=== PATIENT | female | born 1985 | race Caucasian/White ===

== ENCOUNTER 2021-10-22 16:57 | Emergency (ER) | payer BC, SELFPAY ==
[2021-10-22 17:02] VITALS: BP 119/82; PULSE 83; RESP 18; TEMP 36.8; O2SAT 95; BMI 22.8
[2021-10-22 17:30] VITALS: BP 111/80; PULSE 82; RESP 16; O2SAT 97
--- NOTE | 2021-10-22 17:51 | CRLHL7_ITS ---
For Patients: As a result of the Cures Act, medical imaging exams and procedure reports are released immediately into your electronic medical record. You may view this report before your referring provider. If you have questions, please contact your health care provider. INDICATION: fall; injury INDICATION: Fall, injury. TECHNIQUE: Left wrist, three views. COMPARISON: None FINDINGS: Bones: Alignment is normal. No fractures or bone lesions. Joint spaces: Unremarkable. Soft tissues: Unremarkable. IMPRESSION: 1. There is no acute fracture. 2. Mild negative ulnar variance. 3. No lunate/perilunate dislocation on the lateral projection. Dictated by Justin Romano MD @ 10/22/2021 6:42:46 PM Dictated by: Justin Romano MD @ 10/22/2021 18:42:56 (Electronically Signed)
--- NOTE | 2021-10-22 17:51 | CRLHL7_ITS ---
For Patients: As a result of the Cures Act, medical imaging exams and procedure reports are released immediately into your electronic medical record. You may view this report before your referring provider. If you have questions, please contact your health care provider. INDICATION: fall; injury INDICATION: Fall, injury. TECHNIQUE: Left hand, three views. COMPARISON: Left wrist, three views, 10/22/2021. FINDINGS: Bones: Alignment is normal. No fractures or bone lesions. Joint spaces: Unremarkable. Soft tissues: Unremarkable. IMPRESSION: No acute fracture or malalignment. Dictated by Justin Romano MD @ 10/22/2021 6:45:07 PM Dictated by: Justin Romano MD @ 10/22/2021 18:45:28 (Electronically Signed)
--- NOTE | 2021-10-22 17:54 | ED.GENADULT ---
HPI - General Adult General Chief complaint: Fall/Minor Trauma Stated complaint: Fall from ladder Time Seen by Provider: 10/22/21 17:10 History of Present Illness HPI narrative: This 36-year-old female comes in with an injury from a fall that occurred prior to arrival. She was about 4 ft up on a ladder when she fell onto her left side. She did not hit her head or have loss of consciousness. She was able to get up and ambulate after the fall. She complains of pain in her left hand and wrist. She has a small laceration on the palmar aspect of her left middle finger. Related Data Home Medications Medication Instructions Recorded Confirmed buspirone 10/22/21 clonazepam 10/22/21 escitalopram oxalate 10/22/21 gabapentin 10/22/21 levothyroxine 10/22/21 [id number] PO 10/22/21 omeprazole 10/22/21 vitamin B complex PO 10/22/21 Allergies Allergy/AdvReac Type Severity Reaction Status Date / Time amoxicillin Allergy Mild Nausea Verified 10/22/21 17:12 topical iodine Allergy Mild Rash Uncoded 10/22/21 17:12 Review of Systems Status of ROS: Reports: 10 or more systems reviewed and unremarkable except as noted in History and below Narrative: Constitutional: No fevers, no weight gain or loss. Eyes: No discharge. No vision changes. HENT: No congestion, no sore throat, no ear pain. Cardiovascular: No chest pain, no palpitations. Respiratory: No shortness of breath, no wheezes, no cough. Gastrointestinal: No abdominal pain, no vomiting, no diarrhea. Genitourinary: No dysuria, no hematuria. Musculoskeletal: Left hand and wrist pain as described above. Skin: No rashes, no pruritis. Neurological: No dizziness, weakness, sensory change, speech change. Endo/Heme/Allergies: No bruising or bleeding. No polydipsia. Pysch: no suicidality, no anxiety, no insomnia. All other systems reviewed and are negative. PFSH PFS Social History Smoking Status: Never smoker How often do you have a drink containing alcohol: never AUDIT-C Alcohol total score: 0 Non-prescribed substance use: denies use Exam Narrative: Exam Narrative: Constitutional: Well-developed, well-nourished, no acute distress. HEENT: Normocephalic, atraumatic. Neck: Normal range of motion. Nontender. Supple. Heart: Intact distal pulses. Lungs: No chest discomfort. No wheezes, rhonchi, or rales. Abdomen: Nontender. Back: Normal range of motion. Extremities: Diffuse tenderness with some mild swelling and erythema in the left wrist and hand. There is a small superficial laceration, not full thickness wound of the skin, on the palmar aspect of the left middle finger. Skin: Intact. No rash. Warm. No erythema or pallor. Neurologic: No altered sensation. No weakness. Alert and oriented. Psychiatric: No suicidality. No anxiety or depression. No insomnia. Nursing notes and vitals signs are reviewed. Const: Vital Signs, click to edit/add: Vital Signs - 24 hr 10/22/21 17:02 Temperature 98.3 F Pulse Rate [Pulse Oximeter] 83 Respiratory Rate 18 Blood Pressure [ri ght arm] 119/82 Pulse Oximetry 95 Course Vital Signs Vital signs: Initial Vital Signs Temperature 98.3 F 10/22/21 17:02 Temperature Source Temporal Artery Scan 10/22/21 17:02 Pulse Rate 83 10/22/21 17:02 Respiratory Rate 18 10/22/21 17:02 Blood Pressure 119/82 10/22/21 17:02 Blood Pressure Mean 94 10/22/21 17:02 Blood Pressure Position Supine 10/22/21 17:02 Pulse Oximetry 95 10/22/21 17:02 Oxygen Delivery Method 10/22/21 17:02 Vital Signs Temperature 98.3 F 10/22/21 17:02 Pulse Rate 83 10/22/21 17:02 Respiratory Rate 18 10/22/21 17:02 Blood Pressure 119/82 10/22/21 17:02 Pulse Oximetry 95 10/22/21 17:02 Temperature 98.3 F 10/22/21 17:02 Pulse Rate 83 10/22/21 17:02 Respiratory Rate 18 10/22/21 17:02 Blood Pressure 119/82 10/22/21 17:02 Pulse Oximetry 95 10/22/21 17:02 Medical Decision Making MDM Narrative Medical decision making narrative: This patient comes in with an injury to her left hand and wrist from a fall that occurred prior to arrival. X-ray imaging of the hand in the wrist show no sign of fracture or dislocation. The patient does have a superficial wound on the proximal palmar portion of her left middle finger. This was cleansed and then repaired with Dermabond. This is not a full-thickness wound. The length of the wound measures approximately 2 cm. Instructions were given regarding wound care. The patient also received a wrist splint which can be worn as needed. A prescription for some tablets of [place] are also provided. Imaging Data wrist x-ray: Radiologist's impression: 1. There is no acute fracture. 2. Mild negative ulnar variance. 3. No lunate/perilunate dislocation on the lateral projection. hand x-ray: Radiologist's impression: No acute fracture or malalignment. Discharge Plan Discharge Clinical Impression: Laceration, Contusion Patient Disposition: Home, Self-Care Condition: Stable Additional Instructions: Fall from a ladder with contusion to the left wrist and hand. Take medication as needed and indicated. Wear splint as needed also. Follow up with MD or return if worsening. Prescriptions: No Action gabapentin 0RF escitalopram oxalate [Lexapro] 0RF levothyroxine [Tirosint] 0RF [id number]-plofupxm-ylioaak [Creon] PO 0RF clonazepam 0RF omeprazole 0RF buspirone 0RF vitamin B complex [B Complex-Vitamin B12] PO 0RF Follow Up/Referrals: Coreen Tran, EMERGENCY SPILL RESPONSE TECHNICIAN, FLIGHT OPERATION COORDINATOR [Primary Care Provider] - Stand Alone Forms: [employer] Info Instructions
[2021-10-22 18:00] VITALS: BP 111/73; PULSE 78; RESP 18; O2SAT 98
[2021-10-22 18:30] VITALS: BP 112/82
== END 2021-10-22 19:37 | disposition home or self-care (01) ==
PROVIDERS: Emergency Provider Emergency Medicine Emergency Medical Services; PCP Nurse Practitioner Family
DX: S61.213A Laceration without foreign body of left middle finger without damage to nail, initial encounter (principal); W11.XXXA Fall on and from ladder, initial encounter; S60.212A Contusion of left wrist, initial encounter
CPT/HCPCS: 12001; 73110; 73130; 99283; 99284

== ENCOUNTER 2022-02-09 15:25 | Emergency (ER) | payer BC, SELFPAY ==
[2022-02-09 15:48] VITALS: BP 130/86; PULSE 80; RESP 18; TEMP 36.6; O2SAT 96; BMI 23.5
--- NOTE | 2022-02-09 16:00 | ED.GENADULT ---
HPI - General Adult General Time Seen by Provider: 16:01 Date Seen: 02/09/22 Chief complaint: Animal Bite Stated complaint: Dog Bite Yesterday Time Seen by Provider: 02/09/22 16:00 Source: patient History of Present Illness HPI narrative: Vangie is a 37 year old female with past medical history of anxiety and depression, hypothyroidism right handed presents to the ED with an animal bite. Patient states she was bitten by the neighbor's dog around noon yesterday afternoon, he often to take the dog out for a walk, it was a small black might up-to-date on its shots, prior to them leaving the dog grabbed her right hand and latched on, she sustained multiple small bite thorpe to the top and bottom of her right hand, she had some increased redness this morning, there was minimal swelling, she has normal range of motion. Patient had her tetanus about 8 years ago. She denies any fevers or chills. No joint swelling, myalgias arthralgias. She had been doing well prior to the incident. Related Data Home Medications Medication Instructions Recorded Confirmed buspirone 10/22/21 clonazepam 10/22/21 escitalopram oxalate 10/22/21 gabapentin 10/22/21 levothyroxine 10/22/21 [id number] PO 10/22/21 omeprazole 10/22/21 vitamin B complex PO 10/22/21 Previous Rx's Medication Instructions Recorded doxycycline monohydrate 100 mg 100 mg PO BID 7 days #14 caps 02/09/22 capsule metronidazole 500 mg tablet 500 mg PO TID 7 days #21 tabs 02/09/22 Allergies Allergy/AdvReac Type Severity Reaction Status Date / Time amoxicillin Allergy Mild Nausea Verified 10/22/21 17:12 topical iodine Allergy Mild Rash Uncoded 10/22/21 17:12 Review of Systems Status of ROS: Reports: 10 or more systems reviewed and unremarkable except as noted in History and below PFSH PFS Social History Smoking Status: Never smoker How often do you have a drink containing alcohol: never AUDIT-C Alcohol total score: 0 Non-prescribed substance use: denies use Exam Const: Vital Signs, click to edit/add: Vital Signs - 24 hr 02/09/22 15:48 Temperature 97.9 F Pulse Rate [Right Pulse Oximeter] 80 Respiratory Rate 18 Blood Pressure [Ri ght Upper Arm] 130/86 Pulse Oximetry 96 Oxygen Delivery Me thod Room Air Common normals: no apparent distress and oriented x3 General appearance: cooperative Orientation/consciousness: Yes awake, Yes oriented to person, Yes oriented to place and Yes oriented to time HENMT: Common normals: normocephalic Head and scalp: normocephalic Eye: Common normals: PERRL, EOMs intact bilaterally and conjunctivae normal Conjunctiva: conjunctiva(e) normal Pupil: PERRL Neck & C-Spine: Common normals: full ROM Lymph: Lymphatic: no lymphadenopathy noted Resp: Common normals: normal respiratory effort Cardio: Common normals: regular rate, S1 normal heart sound and S2 normal heart sound Rate: regular rate Heart sounds: S1 normal and S2 normal GI: Common normals: Normal to inspection, nondistended, normoactive bowel sounds present Back & Pelvis: Common normals: thoracic and lumbar spine normal to inspection Extremity: Other: Right hand: patient has multiple small bite injuries to dorusm and palm of her index and middle finger, patient has full range of motion, on extension and flexion of her MCP, PIP and the IP, there is minimal swelling and redness, wounds look clean. Signs of any advancing infection. Neuro: Common normals: oriented x3 Sensorium/orientation: awake, oriented to person, oriented to place and oriented to time Course Course Hospital Course: 4:00 PM: AIDET performed. Workup will include no imaging or labs based on history physical exam, patient is up-to-date on tetanus status, plan would be to treat coverage for pasteurella, patient is allergic to amoxicillin, will cover with doxycycline 100 mg b.i.d. in addition to anaerobic coverage with Flagyl 500 mg t.i.d. over the next 7 days, she continue with soap and water keep the area clean, follow-up with primary care provider next 7-10 days. Vital Signs Vital signs: Initial Vital Signs Temperature 97.9 F 02/09/22 15:48 Temperature Source Temporal Artery Scan 02/09/22 15:48 Pulse Rate 80 02/09/22 15:48 Respiratory Rate 18 02/09/22 15:48 Blood Pressure 130/86 02/09/22 15:48 Blood Pressure Mean 100 02/09/22 15:48 Blood Pressure Position Sitting 02/09/22 15:48 Pulse Oximetry 96 02/09/22 15:48 Oxygen Delivery Method 02/09/22 15:48 Vital Signs Temperature 97.9 F 02/09/22 15:48 Pulse Rate 80 02/09/22 15:48 Respiratory Rate 18 02/09/22 15:48 Blood Pressure 130/86 02/09/22 15:48 Pulse Oximetry 96 02/09/22 15:48 Oxygen Delivery Method 02/09/22 15:48 Temperature 97.9 F 02/09/22 15:48 Pulse Rate 80 02/09/22 15:48 Respiratory Rate 18 02/09/22 15:48 Blood Pressure 130/86 02/09/22 15:48 Pulse Oximetry 96 02/09/22 15:48 Oxygen Delivery Method 02/09/22 15:48 Discharge Plan Discharge Clinical Impression: Dog bite Condition: Improved Instructions: Animal Bite (ED) Additional Instructions: Doxycycline 100 mg twice daily and flagyl 500 mg three times daily for 7 days. To continue with soap and water keep the area clean, follow-up with primary care provider as needed over the next 7-10 days. Prescriptions: New doxycycline monohydrate 100 mg capsule 100 mg PO BID 7 Days Qty: 14 0RF metronidazole 500 mg tablet 500 mg PO TID 7 Days Qty: 21 0RF No Action gabapentin escitalopram oxalate [Lexapro] levothyroxine [Tirosint] [id number] [Creon] PO clonazepam omeprazole buspirone vitamin B complex [B Complex-Vitamin B12] PO Follow Up/Referrals: Coreen Tran, CONCRETE MIXER TRUCK DRIVER, JEWELLERY DESIGNER [Primary Care Provider] - Stand Alone Forms: [employer] Info Instructions
--- NOTE | 2022-02-09 16:39 | ED.NURSE ---
[facility] office contacted RE: dog bite.
== END 2022-02-09 16:30 | disposition home or self-care (01) ==
LOC: ED 16:23
PROVIDERS: Emergency Provider Student in an Organized Health Care Education/Training Program; PCP Nurse Practitioner Family
DX: S61.451A Open bite of right hand, initial encounter (principal); W54.0XXA Bitten by dog, initial encounter
CPT/HCPCS: 99283; 99284

== ENCOUNTER 2024-05-18 14:25 | Emergency (ER) | payer BC, SELFPAY ==
--- OUTSIDE RECORDS SUMMARY | 2024-05-18 14:27 | XMS_ITS | Clinical Summary ---
Author Organization [facility] Address [address] [place] [id number] Care Team Providers Care Coil Wrapper Name Role Phone Unavailable Primary Care Provider Unavailabl e Allergies Active Allergy Reactions Criticality Noted Date Comments Iodine Rash Low 12/03/2017 Penicillins Nausea and Vomiting Low 12/03/2017 Social History Tobacco Use Types Packs/Day Years Used Date Smoking Tobacco: Never Assessed Adolescent Education Answer Date Record ed Getting School Help Needed Not on file 12/30 Comments Unknown Sex and Gender Information Value Date Recorded Sex Assigned at Not on file Legal Sex Female 11:24 AM CDT Gender Identity Not on file Sexual Orientation Not on file Last Filed Vital Signs Vital Sign Reading Time Taken Comments Blood Pressure 101/68 09/05/2020 4:00 AM CDT Pulse 80 09/05/2020 4:00 AM CDT Temperature 36.2 C (97.1 F) 09/04/2020 11:03 PM CDT Respiratory Rate 15 09/05/2020 12:30 AM CDT Oxygen Saturation 98% 09/05/2020 12:30 AM CDT Inhaled Oxygen Concentration - - Weight 58.1 kg (128 lb) 08/31/2020 12:46 PM CDT Height - - Body Mass Index - - Plan of Treatment Not on file Insurance BLUE [employer]US
--- OUTSIDE RECORDS SUMMARY | 2024-05-18 14:27 | XMS_ITS | Clinical Summary ---
Author Organization [employer] [facility] Address [place], [place] [address] Care Team Providers Care Actuarial Director Name Role Phone Coreen Tran NP Primary Care Provider [phone] Sylvain Ardon MD Unavailable [phone] Allergies Active Allergy Reactions Criticality Noted Date Comments Acarbose GI Upset 01/16/2023 Amoxicillin Nausea And Vomiting Low 12/03/2017 Iodine And Iodide Containing Products Rash 02/05/2009 Medications promethazine (PHENERGAN) 25 mg tabletIndications: Gastroparesis Take 1 tablet by mouth every 6 hours if needed. 90 tablet 3 020 Active tube feedingIndications :Gastroparesis For home use. Length:99 months HAUL 1.4 @ 50mL/hr via GJ tube, water flush 30mL six times per day (every 4 hours) via GJ. On pump, IV pole, 60cc syringes, drain sponges, cylinder, feeding set 1 Device 021 Active omeprazole (PRILOSEC) 40 mg Delayed-Release capsuleIndications :Chronic gastroesophageal reflux disease 40 mg twice daily before meals. 021 Active ondansetron (ZOFRAN ODT) 8 mg disintegrating tabletIndications: Gastroparesis PLACE 1 TABLET ON THE TONGUE EVERY 8 HOURS IF NEEDED. 18 Tablet 59 021 Active B-D 3cc Luer-Terri Syr 25Gx1 3 mL 25 gauge x 1 syrgIndications:B1 2 deficiency DIRECTED. 12 Each 3 022 Active Creon 24,000-76,000 -120,000 unit Delayed-Release capsule Take 4 Capsules by mouth. With meals 022 Active glucose 4 gram chewable tabletIndications: Hypoglycemia CHEW 1 TABLET (4 G) BY MOUTH EACH TIME IF NEEDED FOR BLOOD GLUC < 60 MG/DL. 30 Tablet 024 Active clonazePAM (KLONOPIN) 0.5 mg tabletIndications: Panic disorder TAKE 1 TABLET BY MOUTH AT BEDTIME 30 Tablet 5 024 Active gabapentin (NEURONTIN) 300 mg capsuleIndications :Postherpetic neuralgia TAKE 2 CAPSULES BY MOUTH THREE TIMES DAILY. 540 Capsule 2 024 Active FreeStyle Imani 3 Sensor for continuous blood glucose monitor (CGM)Indications:H ypoglycemia To be used to read blood sugars, follow early childhood worker directions. 6 Each 3 024 Active FreeStyle Imani 3 [place] for continuous blood glucose monitor (CGM)Indications:H ypoglycemia To be used to read blood sugars follow early childhood worker directions. 1 Each 024 Active FreeStyle Imani 2 SensorIndications: Hypoglycemia Change sensor every 14 days 6 Each 3 024 Active Tirosint 112 mcg capIndications:Pos toperative hypothyroidism Take 112 mcg by mouth once daily. 90 Capsule 3 024 Active busPIRone (BUSPAR) 15 mg tabletIndications: Generalized anxiety disorder TAKE 1 TABLET (15 MG) BY MOUTH THREE TIMES DAILY. 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 90 Tablet 025 Active cyanocobalamin (VITAMIN B12) 1,000 mcg/mL injectionIndicatio ns:B12 deficiency INJECT 1 ML (1,000 MCG) INTRAMUSCULAR EVERY 4 WEEKS. 3 mL 025 Active mirtazapine (REMERON) 7.5 mg tabletIndications: Insomnia, idiopathic TAKE 1 TABLET BY MOUTH EVERYDAY AT BEDTIME 90 Tablet 025 Active cyanocobalamin (VITAMIN B12) 1,000 mcg/mL injectionIndicatio ns:B12 deficiency INJECT 1 ML (1,000 MCG) INTRAMUSCULAR EVERY 4 WEEKS. 3 mL 1 024 2024 Discontinued mirtazapine (REMERON) 7.5 mg tabletIndications: Insomnia, idiopathic TAKE 1 TABLET BY MOUTH EVERYDAY AT BEDTIME 90 Tablet 1 024 2024 Discontinued Active Problems Problem Noted Date Diagnosed Date Pap smear for cervical cancer screening 03/09/20 21 Overview (04/19/2021): 03/2021 NIL/HPV negative. Plan:Pap/HPV due 03/2026 Iron deficiency anemia 02/06/2020 Gastroparesis 01/02/2019 Postherpetic neuralgia 01/02/2019 Postoperative hypothyroidism 04/09/2017 Generalized anxiety disorder 04/09/2008 Depression 04/09/2008 Encounters Date Type Department Care Team Description 05/16/2024 Refill [place] [address] [place] [address] Coreen Tran INFORMATION SYSTEMS CONSULTANT Refill Request (Cyanocobalamin, Mirtazapine) 04/06/2024 Refill [address] [place] [address] Coreen Tran INFORMATION SYSTEMS CONSULTANT Refill Request (Escitalopram Oxalate) 03/08/2024 Refill [address] [place] [address] Coreen Tran INFORMATION SYSTEMS CONSULTANT Refill Request (Buspirone) 03/05/2024 2:15 PM FLUID JET CUTTER OPERATOR Orders Only [place] [phone] [place] [address] Lab, Farm Lab 03/05/2024 Travel 03/03/2024 Telephone [facility] [place] [address] [facility] [address] [place] [phone] Payal Patel MD iron labs 02/18/2024 9:45 AM FLUID JET CUTTER OPERATOR Orders Only [place] [phone] [place] [address] Lab, Farm Lab 02/18/2024 Travel from Last 3 Months Immunizations Name Administration Dates Next Due DTP 09/23/1991, 8,1986,1986,1986 DTaP 11/23/2005 HIB HbOC (HibTITER) 10/20/1987 Influenza Virus, Unspecified 02/13/2017, 01/11/2016,02/03/2014,2013,02/23/2011,05/05/2008 Influenza,LAIV4 Live Intrana sherice (Flumist) 03/23/2015,02/07/2010 MMR 09/23/1991,05/11/1987 Oral Polio Vaccine 09/23/1991, 7,1986,1985 Tdap 10/28/2015,09/11/2013 Tuberculin (PPD) 11/03/2014,02/02/2003, 3 Family History Medical History Relation Name Comments Multiple sclerosis Maternal Aunt Lung cancer Maternal Grandfather Lung cancer Paternal Grandfather Lung cancer Paternal Grandmother Relation Name Status Comments Father Alive Maternal Aunt Maternal Grandfather Maternal Grandmother Alive Mother Alive Paternal Grandfather Paternal Grandmother Social History Tobacco Use Types Packs/Day Years Used Date Smoking Tobacco: Never Smokeless Tobacco: Never Tobacco Cessation:Counseling Given: Yes Alcohol Use Standard Drinks/Week Comments Never 0 (1 standard drink = 0.6 oz pur e alcohol) PHQ-2 Answer Date Recorded PHQ-2 TOTAL SCORE 1 07/06/2023 [facility] - Occupational Stress Questionnaire Answer Date Recorded Feeling of Stress To some extent 01/02/2019 Social Connections Answer Date Recorded Frequency of Communication with Friends and Fami ly Not on file 06/08/2023 Financial Resource Strain Answer Date R ecorded Difficulty of Paying Living Expenses 3 06/02/2022 Difficulty of Paying Living Expenses Not on file 06/02/2022 Food Insecurity Answer Date Recorded Worried About Running Out of Food in the Last Ye ar 1 06/02/2022 Transportation Needs Answer Date Record ed Lack of Transportation (Medical) 1 06/02/2022 Housing Stability Answer Date Recorded Unable to Pay for Housing in the Last Year 1 06/02/2022 Comments No Sex and Gender Information Value Date Recorded Sex Assigned at Not on file Legal Sex Female 3:34 PM CDT Gender Identity Not on file Sexual Orientation Not on file 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 Not on file Not on file Not on file Obstetrics History Para Term AB IAB SAB Ectopic Multiple Livin g Live Births 4 4 4 0 0 0 0 0 0 4 4 Date Outcome GA Total Labor Labor/2nd/3rd Weight Sex Type Anes PTL Debra A1 A5 Name Clin 2007 Term F Vag Living 2008 Term F Vag Living 2013 Term M Vag Living 2015 Term M Vag Living Last Filed Vital Signs Vital Sign Reading Time Taken Comments Blood Pressure 120/78 08/28/2023 10:26 AM CDT Pulse 86 08/28/2023 10:26 AM CDT Temperature 36.7 C (98 F) 08/28/2023 10:26 AM CDT Respiratory Rate 14 08/28/2023 10:26 AM CDT Oxygen Saturation 98% 08/28/2023 10:26 AM CDT Inhaled Oxygen Concentration - - Weight 78.3 kg (172 lb 9.6 oz) 08/28/2023 10:26 AM CDT Height 170.2 cm (5' 7) 02/06/2023 8:28 AM CDT Body Mass Index 27.03 02/06/2023 8:28 AM CDT Plan of Treatment Upcoming Encounters Date Type Department Care Team (Late st Contact Info) Description 11/25/2024 1:00 PM CDT Telemedicine [facility] [address] [facility] [address] [facility] [address] [place] [address] Sylvain Ardon MD [address] [facility] [address] [facility] [address] [place] [address] Health Maintenance Due Date Last Done Comments HIV for age 15-65 2001 Hepatitis C screening for age 18-79 01/06/2004 COVID-19 vaccine series ( season) 2023 Influenza for age 9-49 12/09/2023 7, 01/11/2016, 03/23/2015, Additional history exists BMI (ht and wt on same day) for age 18+ 02/07/2024 02/06/2023, 06/02/2022, 10/12/2021, Additional history exists Depression screening for age 12+ 07/05/2024 07/06/2023, 07/03/2023, 06/02/2022, Additional history exists Tetanus booster 10/27/2025 10/28/2015, 09/11/2013 Tdap Completed 10/28/2015, 09/11/2013 Pap test for age 21-65 Discontinued , 03/18/2021, 02/24/2016 [facility] Pneumococcal series for age 6-49 Aged Out No longer eligible based on patient's age to complete this topic Procedures Procedure Name Priority Date/Time Associated Diagnosis Comments CBC WITH AUTO DIFFERENTIAL Routine 03/05/2024 2:17 PM FLUID JET CUTTER OPERATOR Iron deficiency VITAMIN B12 Routine 03/05/2024 2:17 PM FLUID JET CUTTER OPERATOR Iron deficiency FERRITIN Routine 03/05/2024 2:17 PM FLUID JET CUTTER OPERATOR Iron deficiency IRON PLUS IRON BINDING CAP Routine 03/05/2024 2:17 PM FLUID JET CUTTER OPERATOR Iron deficiency CBC WITH AUTO DIFFERENTIAL Routine 03/05/2024 2:17 PM FLUID JET CUTTER OPERATOR Iron deficiency T4,FREE Routine 02/18/2024 9:51 AM FLUID JET CUTTER OPERATOR Postoperative hypothyroidism TSH Routine 02/18/2024 9:51 AM FLUID JET CUTTER OPERATOR Postoperative hypothyroidism HPV HIGH RISK Routine 03/18/2021 11:45 AM FLUID JET CUTTER OPERATOR Pap smear for cervical cancer screening from Last 3 Months or Most Recently Relevant to Health Maintenance Results * CBC WITH AUTO DIFFERENTIAL (03/05/2024 2:17 PM FLUID JET CUTTER OPERATOR) WHITE BLOOD COUNT 6.6 4.5 - 11.0 thou/cu mm 03/05/2024 10:27 PM FLUID JET CUTTER OPERATOR [facility] RED BLOOD COUNT 4.21 4.00 - 5.20 mil/cu mm 03/05/2024 10:27 PM FLUID JET CUTTER OPERATOR [facility] HEMOGLOBIN 13.4 12.0 - 16.0 g/dL 03/05/2024 10:27 PM [facility] HEMATOCRIT 39.7 33.0 - 51.0 % 03/05/2024 10:27 PM [facility] MCV 94 80 - 100 fL 03/05/2024 10:27 PM [facility] MCH 31.8 26.0 - 34.0 pg 03/05/2024 10:27 PM [facility] MCHC 33.8 32.0 - 36.0 g/dL 03/05/2024 10:27 PM [facility] RDW 12.6 11.5 - 15.5 % 03/05/2024 10:27 PM [facility] PLATELET COUNT 269 140 - 440 thou/cu mm 03/05/2024 10:27 PM [facility] MPV 9.4 6.5 - 11.0 fL 03/05/2024 10:27 PM [facility] NRBC 0.0 % 03/05/2024 10:27 PM [facility] ABS NRBC 0.0 thou /cu mm 03/05/2024 10:27 PM [facility] % NEUT 51.2 % 03/05/2024 10:27 PM [facility] % LYMPH 38.3 % 03/05/2024 10:27 PM [facility] % MONO 6.9 % 03/05/2024 10:27 PM [facility] % EOS 1.5 % 03/05/2024 10:27 PM [facility] % BASO 1.8 % 03/05/2024 10:27 PM [facility] % IMMATURE GRAN (METAS,MYELOS,CA OS) 0.3 % 03/05/2024 10:27 PM [facility] ABSOLUTE NEUTROPHILS 3.4 1.7 - 7.0 thou/cu mm 03/05/2024 10:27 PM FLUID JET CUTTER OPERATOR [facility] ABSOLUTE LYMPHOCYTES 2.5 0.9 - 2.9 thou/cu mm 03/05/2024 10:27 PM FLUID JET CUTTER OPERATOR [facility] ABSOLUTE MONOCYTES 0.5 <0.9 thou/cu mm 03/05/2024 10:27 PM [facility] ABSOLUTE EOSINOPHILS 0.1 <0.5 thou/cu mm 03/05/2024 10:27 PM FLUID JET CUTTER OPERATOR [facility] ABSOLUTE BASOPHILS 0.1 <0.3 thou/cu mm 03/05/2024 10:27 PM [facility] ABSOLUTE IMMATURE GRANULOCYTES(MET ,MYELOS,PROS) 0.0 <0.3 thou/cu mm 03/05/2024 10:27 PM [facility] Blood BLOOD SPECIMEN / Unknown [facility] / Unknown 03/05/2024 2:17 PM FLUID JET CUTTER OPERATOR 03/05/2024 2:18 PM FLUID JET CUTTER OPERATOR Narrative [facility] - 03/05/2024 10:27 PM FLUID JET CUTTER OPERATOR This procedure was originally ordered at [facility]. Veronica PALACIO HEMATOLOGY Final R esult [facility] [address] [place] [address], * (ABNORMAL) IRON PLUS IRON BINDING CAP (03/05/2024 2:17 PM FLUID JET CUTTER OPERATOR) IRON 118 37 - 145 ug/dL 03/05/2024 11:14 PM [facility] UIBC (UNSATURATED) 128 112 - 347 ug/dL 03/05/2024 11:14 PM [facility] IRON BINDING CAPACITY 246(L) 250 - 400 ug/dL 03/05/2024 11:14 PM [facility] IRON,% SATURATION 48 14 - 50 % 03/05/2024 11:14 PM [facility] Blood BLOOD SPECIMEN / Unknown [facility] / Unknown 03/05/2024 2:17 PM FLUID JET CUTTER OPERATOR 03/05/2024 2:18 PM FLUID JET CUTTER OPERATOR Veronica PALACIO CHEMISTRY Final R esult Performing Organization Address City/[facility]/ZIP Co de Phone Number [facility] [address] [place] [id number], [place] * (ABNORMAL) FERRITIN (03/05/2024 2:17 PM FLUID JET CUTTER OPERATOR) Pathologist [facility] FERRITIN 227.0(H) 15.0 - 150.0 ng/mL 03/05/2024 11:14 PM FLUID JET CUTTER OPERATOR [facility] Blood BLOOD SPECIMEN / Unknown [facility] / Unknown 03/05/2024 2:17 PM FLUID JET CUTTER OPERATOR 03/05/2024 2:18 PM FLUID JET CUTTER OPERATOR Veronica PALACIO [facility]MISTRY [facility] Performing Organization Address [facility] Co de Phone Number [facility] [address] [phone], [place] * VITAMIN B12 (03/05/2024 2:17 PM FLUID JET CUTTER OPERATOR) [facility] VITAMIN B12 1,000 232 - 1,245 pg/mL 03/05/2024 11:14 PM FLUID JET CUTTER OPERATOR [facility] Blood BLOOD SPECIMEN / Unknown [facility] / Unknown 03/05/2024 2:17 PM FLUID JET CUTTER OPERATOR 03/05/2024 2:18 PM FLUID JET CUTTER OPERATOR Narrative [facility] - 03/05/2024 11:14 PM FLUID JET CUTTER OPERATOR Biotin supplements may cause clinically significant interference for this test assay. If interference is suspected, it is strongly recommended that biotin is discontinued for at least one week prior to retesting. Veronica PALACIO CHEMISTRY Final R esult Performing Organization Address City/[facility] Co de Phone Number [facility] [address] [place] [id number], [place] * TSH (02/18/2024 9:51 AM FLUID JET CUTTER OPERATOR) Pathologist [facility] TSH 1.52 mIU/L [employer] Comment: Reference Range > or = 20 Years 0.40-4.50 Ranges First trimester 0.26-2.66 Second trimester 0.55-2.73 Third trimester 0.43-2.91 Blood BLOOD SPECIMEN / Unknown 02/18/2024 9:51 AM FLUID JET CUTTER OPERATOR 02/18/2024 9:51 AM FLUID JET CUTTER OPERATOR Sylvain Ardon MD CHEMISTRY Final Re sult [facility] [address] [place] [address], [facility] [address] [place] [address] * T4,FREE (02/18/2024 9:51 AM FLUID JET CUTTER OPERATOR) Pathologist [facility] T4, FREE 1.2 0.8 - 1.8 ng/dL [employer] Blood BLOOD SPECIMEN / Unknown 02/18/2024 9:51 AM FLUID JET CUTTER OPERATOR 02/18/2024 9:51 AM FLUID JET CUTTER OPERATOR Sylvain Ardon MD CHEMISTRY Final Re sult [facility] [address] [place] [phone], [facility] [address] [place] [address] * HPV HIGH RISK (03/18/2021 11:45 AM FLUID JET CUTTER OPERATOR) Pathologist [facility] TYPE 16 Negative Negative 03/23/2021 5:25 PM FLUID JET CUTTER OPERATOR [facility] TYPE 18 Negative Negative 03/23/2021 5:25 PM FLUID JET CUTTER OPERATOR [facility] OTHER HIGH RISK TYPES Negative Negative 03/23/2021 5:25 PM FLUID JET CUTTER OPERATOR [facility] Other (Cervical) Non-Blood / Unknown 03/18/2021 11:45 AM FLUID JET CUTTER OPERATOR 03/21/2021 9:51 AM FLUID JET CUTTER OPERATOR Narrative [facility] - 03/23/2021 5:25 PM FLUID JET CUTTER OPERATOR HPV types 16, 18, 31, 33, 35, 39, 45, 51, 52, 56, 58, 59, 66 and 68 DNA were undetectable or below the pre-set threshold. Methodology: Vidhya Lindy 4800 HPV Test us Coreen Tran NP MICROBIOLOGY Final Res ult [facility] [address] [place] [address], from Last 3 Months or Most Recently Relevant to Health Maintenance Insurance [employer] [place] [employer] Advance Directives * Full Code (Latest Code Status on File) Date Activated Date Inactivated Comments 10/31/2021 6:08 AM 10/31/2021 2:56 PM Question Answer Comments Code Status Discussion: Reviewed Preferences * Full Code Date Activated Date Inactivated Comments 09/27/2020 3:52 PM 09/29/2020 3:09 PM Question Answer Comments Code Status Discussion: Discussed Care Teams Actuarial Director Relationship Specialty [place] [address] [address] [place] [address] PCP - General Nurse Practitioner 01/02/19 Sylvain Ardon MD [address] [facility] [address] [place] [address] Endocrinology 08/23/22
--- OUTSIDE RECORDS SUMMARY | 2024-05-18 14:27 | XMS_ITS | Continuity of Care Document ---
Author Organization [facility] Address [address] [address] [place] [address] Phone Care Team Providers Care Electronic Heat Seal Operator Name Role Phone Bj PURI, Sylvester Unavailable Unavailable Allergies, Adverse Reactions, Alerts Substance Reaction Status Criticality AMOXICILLIN TRIHYDRATE Nausea/Vomiting Active No Information POTASSIUM CLAVULANATE Nausea/Vomiting Active No Information adhesive tape HivesHives Active No Information amoxicillin HivesHives Active No Information IODINE Active No Information Medications Medication Instructions Dosage Effective Dates (start - stop) Status Comments Amitiza 8 mcg capsule take 1 capsule by oral route 2 times every day with food and water 8 MCG - Active mirtazapine 7.5 mg tablet take 1 tablet by oral route every day at bedtime 7.5 MG - Active FreeStyle Imani 2 [place] - Active Creon 24,000-76,000-120,00 0 unit capsule,delayed release TAKE 4 CAPSULES BY MOUTH 4 TIMES DAILY WITH MEALS AND 2 CAPS WITH EACH SNACK. - Active promethazine 25 mg tablet take 0.5 - 1 Tablet by ORAL route 2 times every day as needed 12.5 MG - Active ondansetron 8 mg disintegrating tablet take 1 tablet by oral route every 8 hours as needed 8 MG - Active omeprazole 40 mg capsule,delayed release TAKE 1 CAPSULE BY MOUTH TWICE A DAY BEFORE A MEAL - Active Needs OV for more refills or can request through PCP. acarbose 100 mg tablet take 1 tablet by oral route every day at the start (with the first bite) of each main meal 100 MG Caio-30-2023 - Active cyanocobalamin (vit B-12) 1,000 mcg/mL injection solution inject 1 milliliter by intramuscular route every week 1000 MCG - Active Miralax 17 gram/dose oral powder take 1 Dose(s) by ORAL route every day powder mixed with 8 oz. water, juice, soda, coffee, or tea 1.1333 G - Active Tirosint 100 mcg capsule take 1 capsule by oral route every day 100 MCG - Active clonazepam 1 mg tablet take 1 tablet by oral route every 2 days prn 1 MG - Active gabapentin 300 mg capsule take 2 capsule by oral route 3 times every day 600 MG - Active buspirone 15 mg tablet take 1 tablet by oral route 2 times every day 15 MG - Active escitalopram 20 mg tablet take 1 tablet by oral route every day 20 MG - Active Motegrity 2 mg tablet take 1 tablet by oral route every day 2 MG - No Longer Active Procedures Procedure Date Offic/outpt E&m Estab Mod-hi 2 Dietitian Established Virtual Visit IV Infusion Up To 1 Hour Infus Normal Saline Soln 500 ML 023 IV Infusion Up To 1 Hour Infus Normal Saline Soln 500 ML 023 IV Infusion Up To 1 Hour Infus Normal Saline Soln 500 ML 023 IV Infusion Up To 1 Hour Infus Normal Saline Soln 500 ML 023 Routine Serum Collection Dietitian Established Virtual Visit Established Level 5 Established Level 5 Colonoscopy Flex; W/bx 1/mx Ugi Endo; W/bx 1/mx Level Iv-surg Path Gross/micro Established Level 4 Established Level 4 Established Level 3 Established Level 5 Established Level 5 Dietitian Established Virtual Visit Established Level 4 Established Level 5 Dietitian New Virtual Visit Established Level 3 Established Level 4 Offic/outpt E&m New Mod-hi Routine Serum Collection cancelled appt Gg; Iga, Igd, Igg, Igm, Ea Advance Directives Directive Yes / No Effective Date File Name No Information Encounters Encounter Description Practice Location Reason(s) For Visit Diagnoses Date Provider Providers Copied on Encounter [facility], [address] [address], [place], [id number], [place] tel:[phone] [facility] No Information 4 Bj Phan. [address], [id number], [place]. tel:[phone] Offic/outpt E&m Estab Mod-hi 2 [facility], [address] [address], [place], [id number], [place] tel:[phone] [facility] GI Symptoms or Concerns (chief complaint) Irritable bowel syndrome with constipationC hronic idiopathic constipationG astroparesisP ancreatic insufficiency 4 Bj Phan. 3001 [facility] [address], [place], [id number], [place]. tel:[phone] Referring Provider: Coreen Christy, [address] [place], [address]. tel:[phone] [facility], [address] [address], [place], [id number], [place] tel:[phone] [facility] GI Symptoms or Concerns (chief complaint) Gastroparesis Dietary counseling and surveillance 3 Quang Trevino. [address], [id number], [place]. tel:[phone] Referring Provider: Referral Self, USE FOR SELF REFERRALS. [facility], [address] [address], [place], [id number], [place] tel:[phone] [facility] Gastroparesis 3 Tom Figueredo. 3001 [facility], [address], [id number], [place]. tel:[phone] [facility], [address] [address], [place], [id number], [place] tel:[phone] [facility] Gastroparesis 3 Irene Obrien. [address] [place] [address], [id number], [place]. tel:[phone] Referring Provider: Referral Self, USE FOR SELF REFERRALS. [facility], [address] [address], [place], [id number], [place] tel:[phone] [facility] [place] Gastroparesis 3 Tom Figueredo. [address], [id number], [place]. tel:[phone] [facility], [address] [address], [place], [id number], [place] tel:[phone] [facility] Gastro-esopha geal reflux disease without esophagitisGa stroparesis 3 Tom Figueredo. [address] [place] [address], [id number], [place]. tel:[phone] [facility], [address] [address], [place], [id number], [place] tel:[phone] [facility] Gastroparesis 3 Tom Figueredo. 3001 [facility], [address], [id number], [place]. tel:[phone] [facility], [address] [address], [place], [id number], [place] tel:[phone] [facility] Gastro-esopha geal reflux disease without esophagitisIr on deficiency anemia, unspecified 3 Yazan Landrum. [address] [place] [address], [id number], [place]. tel:[phone] Referring Provider: Referral Self, USE FOR SELF REFERRALS. [facility], [address] [address], [place], [id number], [place] tel:[phone] [facility] Gastro-esopha geal reflux disease without esophagitis 3 Tom Figueredo. [address] [place] [address], [id number], [place]. tel:[phone] [facility], [address] [address], [place], [id number], [place] tel:[phone] [facility] [place] Gastro-esopha geal reflux disease without esophagitis 3 Jose Antonio Roque. [address] [place] [address], [id number], [place]. tel:[phone] Referring Provider: Referral Self, USE FOR SELF REFERRALS. [facility], [address] [address], [place], [id number], [place] tel:[phone] [facility] [place] Gastro-esopha geal reflux disease without esophagitis 3 Tom Figueredo. [address] [place] [address], [id number], [place]. tel:[phone] [facility], [address] [address], [place], [id number], [place] tel:[phone] [facility] Gastro-esopha geal reflux disease without esophagitis 3 Jett German. [address] [place] [address], [id number], [place]. tel:[phone] Referring Provider: Referral Self, USE FOR SELF REFERRALS. [facility], [address] [address], [place], [id number], [place] tel:[phone] [facility] Iron deficiency anemia, unspecified 3 Tom Figueredo. 3001 [facility], [address], [id number], [place]. tel:[phone] Referring Provider: Referral Self, USE FOR SELF REFERRALS. [facility], [address] [address], [place], [id number], [place] tel:[phone] [facility] Gastroesophag eal reflux disease without esophagitis 3 Tom Figueredo. [address] [place] [address], [address], [id number], [place]. tel:[phone] [facility], [address] [address], [place], [id number], [place] tel:[phone] [facility] GI Symptoms or Concerns (chief complaint) Gastroparesis Dietary counseling and surveillance 3 Quang Trevino. 3001 [facility], [facility] [address], [place], [id number], [place]. tel:[phone] Referring Provider: Referral Self, USE FOR SELF REFERRALS. Established Level 5 [facility], [address] [address], [place], [id number], [place] tel:[phone] [facility] GI Symptoms or Concerns (chief complaint) Previous History Review (chief complaint) Gastroesophag eal reflux disease without esophagitisGa stroparesisPa ncreatic insufficiency Vomiting, intractabilit y of vomiting not specified, presence of nausea not specified, unspecified vomiting typeChronic idiopathic constipationI bradley deficiency anemia, unspecified iron deficiency anemia typeVitamin B12 deficiency 3 Tom Figueredo. [address] [place] [address], [facility] [address], [place], [id number], [place]. tel:[phone] Referring Provider: Referral Self, USE FOR SELF REFERRALS. Established Level 5 [facility], [address] [address], [place], [id number], [place] tel:[phone] [facility] GI Symptoms or Concerns (chief complaint) Gastroparesis Pancreatic insufficiency B12 deficiencyAbn ormal bowel habits Jun- 3 Propp ROSENDO Vidal. [facility]1 [facility], [address], [id number], [place]. tel:[phone] Referring Provider: Coreen Tran CNP Jaelyn, [address] [facility] [place], [address]. tel:[phone] [facility], [address] [address], [place], [place], [id number], [place] tel:[phone] [facility] GI Symptoms or Concerns (chief complaint) Other fecal abnormalities Iron deficiency anemia, unspecifiedIr on deficiency anemia, unspecifiedCh shane in bowel habitsPancrea tic insufficiency Iron deficiency anemia, unspecifiedCh shane in bowel habit August-0 2 Tom Figueredo. [address] [place] [address], [id number], [place]. tel:[phone] Referring Provider: Referral Self, USE FOR SELF REFERRALS. [facility], [address] [address], [place], [place], [id number], [place] tel:[phone] [facility] Change in consistency of stoolPancreat ic insufficiency Weight loss Jul-0 2 Tom Figueredo. [address], [id number], [place]. tel:[phone] Established Level 4 [facility], [address] [address], [place], [place], [id number], [place] tel:[phone] [facility] GI Symptoms or Concerns (chief complaint) Additional Narrative (chief complaint) Gastroparesis Gastroesophag eal reflux disease without esophagitisCh ronic idiopathic constipationV itamin B12 deficiencyIDA (iron deficiency anaemia)Vitam in D deficiency Fe- 2 Tom Figueredo. [address], [id number], [place]. tel:[phone] Referring Provider: Referral Self, USE FOR SELF REFERRALS. Established Level 4 [facility], [address] [address], [place], [id number], [place] tel:[phone] [facility] GI Symptoms or Concerns (chief complaint) Additional Narrative (chief complaint) Iron deficiency anemia, unspecifiedGa stroparesisAl opeciaGastroe sophageal reflux disease without esophagitis 1 Tom Figueredo. [address] [place] [address], [address], [id number], [place]. tel:[phone] Referring Provider: Referral Self, USE FOR SELF REFERRALS. [facility], [address] [address], [place], [id number], [place] tel:[phone] [facility] Gastroparesis 1 Tom Figueredo. [address] [place] [address], [id number], [place]. tel:[phone] Established Level 3 [facility], [address] [address], [place], [id number], [place] tel:[phone] [facility] GI Symptoms or Concerns (chief complaint) Additional Narrative (chief complaint) Gastroparesis Weight lossGastroeso phageal reflux disease without esophagitis 1 Tom Figueredo. [address] [place] [address], [id number], [place]. tel:[phone] Referring Provider: Referral Self, USE FOR SELF REFERRALS. Established Level 5 [facility], [address] [address], [place], [id number], [place] tel:[phone] [facility] GI Symptoms or Concerns (chief complaint) Additional Narrative (chief complaint) Weight lossGastropar esisVomiting, intractabilit y of vomiting not specified, presence of nausea not specified, unspecified vomiting typeGastroeso phageal reflux disease without esophagitis 1 Tom Figueredo. [address] [place] [address], [id number], [place]. tel:[phone] Referring Provider: Referral Self, USE FOR SELF REFERRALS. Established Level 5 [facility], [address] [address], [place], [id number], [place] tel:[phone] [facility] GI Symptoms or Concerns (chief complaint) Additional Narrative (chief complaint) Gastroparesis Weight lossVomiting, intractabilit y of vomiting not specified, presence of nausea not specified, unspecified vomiting type 1 Tom Figueredo. [address] [place] [address], [address], [id number], [place]. tel:[phone] Referring Provider: Referral Self, USE FOR SELF REFERRALS. [facility], [address] [address], [place], [id number], [place] tel:[phone] [facility] GI Symptoms or Concerns (chief complaint) Chronic idiopathic constipationG astroparesisW eight loss 1 No Information Referring Provider: Referral Self, USE FOR SELF REFERRALS. Established Level 4 [facility], [address] [address], [place], [id number], [place] tel:[phone] [facility] GI Symptoms or Concerns (chief complaint) Additional Narrative (chief complaint) Gastroparesis 1 Tom Figueredo. [address] [place] [address], [id number], [place]. tel:[phone] Referring Provider: Referral Self, USE FOR SELF REFERRALS. [facility], [address] [address], [place], [id number], [place] tel:[phone] [facility] Volume depletion 1 Tom Figueredo. [address] [place] [address], [id number], [place]. tel:[phone] Established Level 5 [facility], [address] [address], [place], [id number], [place] tel:[phone] [facility] GI Symptoms or Concerns (chief complaint) Additional Narrative (chief complaint) Gastroparesis Weight lossVolume depletion 1 Tom Figueredo. [address] [place] [address], [id number], . tel:[phone] Referring Provider: Referral Self, USE FOR SELF REFERRALS. [facility], [address] [address], [place], [id number], [place] tel:[phone] [facility] GI Symptoms or Concerns (chief complaint) Chronic idiopathic constipationG astroparesisW eight loss Jul-2 1 No Information Referring Provider: Referral Self, USE FOR SELF REFERRALS. [facility], [address] [address], [place], [id number], [place] tel:[phone] [facility] Weight lossGastropar esis Jul-0 1 Tom Figueredo. [address] [place] [address], [id number], . tel:[phone] Established Level 3 [facility], [address] [address], [place], [id number], [place] tel:[phone] [facility] GI Symptoms or Concerns (chief complaint) Additional Narrative (chief complaint) Gastroesophag eal reflux disease without esophagitisGa stroparesisCh ronic idiopathic constipation Jun-0 1 Tom Figueredo. [address] [place] [address], [id number], [place]. tel:[phone] Referring Provider: Referral Self, USE FOR SELF REFERRALS. Established Level 4 [facility], [address] [address], [place], [id number], [place] tel:[phone] [facility] GI Symptoms or Concerns (chief complaint) Additional Narrative (chief complaint) Iron deficiency anemia, unspecifiedRU Q painVomiting, intractabilit y of vomiting not specified, presence of nausea not specified, unspecified vomiting typeWeight lossConstipat ion, unspecified constipation typeGastropar esis 1 Tom Figueredo. [address] [place] [address], [address], [id number], [place]. tel:[phone] Referring Provider: Coreen Christy, [address] [place], [address]. tel:[phone] Offic/outpt E&m New Mod-hi [facility], [address] [address], [place], [id number], tel:[phone] [facility] GI Symptoms or Concerns (chief complaint) Iron deficiency anemia, unspecified iron deficiency anemia typeVomiting, intractabilit y of vomiting not specified, presence of nausea not specified, unspecified vomiting typeWeight lossConstipat ion, unspecified constipation typeRUQ pain 0 Tom Figueredo. [address] [place] [address], [id number], [place]. tel:[phone] [facility], [address] [address], [place], [id number], tel:[phone] [facility] Iron deficiency anemia, unspecified 0 Tom Figueredo. [address] [place] [address], [id number], [place]. tel:[phone] Referring Provider: Coreen Trevinobeth, [address], [place], [address]. tel:[phone] Family History Family Member Type Diagnosis Age At Onset Mother Problem (finding) Alive and well Mother Problem (finding) gallbladder disease Father Problem (finding) Alive and well Father Problem (finding) Colon polyps Payers Payer name Insurance type Covered democrat ID Authoriza tisharon(s) [employer] [facility] [id number] Social History Type Description Quantity Date Captured Comments Alcohol Use Details Unknown Caffeine Use Details Unknown Tobacco Use Status No Information Smoking Status No Information Sex Female Chief Complaint And Reason For Visit No Information Reason For Referral Reason For Referral No Information Plan Of Treatment Date Type Action Status Referral Ordered: Administer 0.9% NaCl 1000mL over a minimum of 31 minutes, one time, by IV route ordered Referral Ordered: Administer D5W 1000mL over a minimum of 31 minutes, one time, by IV route ordered Referral Ordered: Iron/TIBC Appointment date/timeframe: 02/02/2023 ordered Referral Ordered: Electrocardiogram ECG routine w/ at least 12 leads tracing w/out interpret/report Appointment date/timeframe: 10/26/2022 ordered Referral Ordered: follow-up visit with [facility] in 4 Months or by 02/04/2023 Appointment date/timeframe: 02/05/2023 ordered Referral Ordered: CBC W/diff, Whole Blood Appointment date/timeframe: First Available ordered Referral Ordered: referred to [facility] urgent - formula change needed within 4 Weeks Appointment date/timeframe: 28 Days ordered Referral Ordered: MRI Pancreas WITH Contrast Appointment date/timeframe: 07/20/2022 ordered Referral Ordered: MRI Pancreas WITHOUT Contrast Appointment date/timeframe: 07/20/2022 ordered Referral Ordered: Vitamin B12 Serum Appointment date/timeframe: 08/29/2021 ordered Referral Ordered: Vitamin A And E Appointment date/timeframe: 08/29/2021 ordered Referral Ordered: Vitamin D, 25-Hydroxy Appointment date/timeframe: 08/29/2021 ordered Referral Ordered: Hemoglobin A1c Appointment date/timeframe: 07/28/2021 ordered Referral Ordered: IgG, Subclasses(1-4) Appointment date/timeframe: 07/28/2021 ordered Referral Ordered: Ferritin Appointment date/timeframe: 03/08/2021 ordered Referral Ordered: Supplies Appointment date/timeframe: First Available ordered Referral Ordered: IR to place GJ tube feed at ANW ordered Referral Ordered: Gastric Emptying Study (4 Hours) Appointment date/timeframe: 09/02/2020 ordered Referral Ordered: CT Enterography WITH Contrast Appointment date/timeframe: 09/02/2020 ordered Referral Ordered: 1 L IV fluid over 1 hour twice a week. Place peripheral IV for infusion, homebound patient. 99 doses ordered Referral Ordered: IVF: 1 L NS twice a week ordered Referral Ordered: CMP Appointment date/timeframe: 09/02/2020 ordered Referral Ordered: Place midline - single lumen 5 cm length. ordered Referral Ordered: Magnesium Appointment date/timeframe: 09/02/2020 ordered Referral Ordered: Phosphorus Appointment date/timeframe: 09/02/2020 ordered Referral Ordered: Starting 08/24 for dose of 99: 1 L NS given via midline over 1 hour ordered Referral Ordered: Free T4 Appointment date/timeframe: 08/04/2020 ordered Referral Ordered: TSH Appointment date/timeframe: 08/04/2020 ordered Referral Ordered: Free T3 Appointment date/timeframe: 08/04/2020 ordered Referral Ordered: Ultrasound Abdomen Appointment date/timeframe: 03/09/2020 ordered Referral Ordered: EGD Appointment date/timeframe: -today ordered Referral Ordered: Colonoscopy Appointment date/timeframe: -today ordered History Of Present Illness Encounter Date Complaint History Of Prese nt Illness GI Symptoms or Concerns 38-year-old female patient with history of gastroparesis, pancreatic insufficiency, and chronic constipation who presents for follow-up for medication refill. Reports that she has been doing very well for a while. In regards to her gastroparesis, she has been using Zofran 1 to 2 times a day, promethazine once heavy other day. Rarely she might have some vomiting. She has been eating by mouth mostly, and using [employer] 1.4 standard supplement 1 box 3 times daily. She has been gaining weight recently and has been asking if it is okay to drop that twice daily. Reports that her PEG J-tube is functioning well with no issues with the tube. Last time was exchanged in May and she is currently due for tube exchange. In regards to her acid reflux, this is not well controlled. Reports taking omeprazole 40 milligram twice daily along with famotidine 20 milligram twice daily. She is not taking omeprazole correctly and taking that with meals rather than before meals. She does not believe that famotidine is providing any benefit. In regards to constipation, she is having 1 bowel movement twice a week. Stool is hard in consistency. She uses MiraLax with no significant benefit. She has tried Linzess and Trulance in the past which caused diarrhea. Never been on Motegrity in the past. She also has history of reactive hypoglycemia being managed by endocrinology.below copied and updated Current treatment: 3 can [employer] via J tubefamotidine omeprazolezofranPromethazinemiralax iron infusion x mult and recurrent due to recurrent drops in ferritin, non response to oral iron. This is managed by Hematology. Reports high levels recently.Prior treatment:trulance, linzess --> diarrheaIVF via midline (removed 09/2020)compazine --> dystonic reactionreglan -->anxietylansoprazole -->did not workzantac --> did not work famotidine -> did not work Prior GI EVAL: IMAGING:- CT scan abd/pelvis 09/05/20: negative - CT scan without contrast due to contrast allergy in March 2018 was normal.- [address] scan head (w and w/out contrast) 09/05: negative - US 2019; neg Scopes e/c neg 08/28 w/ d/g/i/c biopsies PAST MEDICAL HISTORY1. Hypothyroid, previously hyperthyroid status post thyroidectomy.2. Kidney stones.3. Shingles.4. Anxiety and depression.5. Vitamin D deficiency.6. CL requiring IV iron as did not respond to po iron; not vegan or vegetarian. She menstruates on a regular basis, but not heavy periods. She has had 4 childbirths. EGD neg. declines colonoscopy despite multiple discussions . B12 def8. Alopecia areata SOCIAL HISTORYShe is originally from [place]. Her works for the [employer]. 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 She does not follow any specific dietary restrictions.FAMILY HISTORYNegative for celiac, IBD, or colorectal cancer. Her father has some colon polyps, nobody else has colon polyps or colon cancer. A grandmother had esophageal stricture that required dilation at the end of her life. GI Symptoms or Concerns Nutrition Reassessment - Established patientAnthropometric dataNo recent change in weight reported. 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 She is on supplemental GJ tube feeds for gastroparesis. She takes 3 cartons of DNA SEQ Standard 1.4 at [facility] (8p-8a). Tube feeding provides 1365 calories, 153 g CHO, 9 g fiber, and 60 g protein and meets ~80% of nutritional needs. She eats orally during the day. She has observed some low blood sugar levels in the morning (after stopping her tube feeding) but not on a consistent basis and never during her tube feeding. She has added more protein to her diet since our last visit including Israeli yogurt, string cheese, turkey deli meat, and some ground turkey and chicken breast. Estimated Energy and Nutrient [id number] calories/nli83-55 g protein/dayNutrition DiagnosisAltered nutrition-related lab values (glucose) related to inadequate protein/fat intake as evidenced by patient self-report of a decrease in reactive hypoglycemic episodes since increasing her protein intake.Nutrition Discussion and EducationThe patient was seen in follow-up for reactive hypoglycemia. Her last visit was ~1 month ago. The patient reports that she is still having episodes, but the frequency and severity has decreased. She also feels they are more predictable. She estimates having 3-4 episodes/week, mostly occurring in the morning after being off of her tube feeding for a few hours. She tells me she has been better about eating protein since our last visit (previously was consuming mostly carbohydrate foods). I encouraged her to continue to pair protein and/or a small amount of fat (with Creon) with carbohydrate foods to help manage blood sugar levels during the day. I advised eating no more than 1-2 hours after stopping her tube feeding in the morning hours. We discussed trying other gp friendly protein foods such as eggs/egg whites and cottage cheese. If hypoglycemic episodes being to occur during or at the end of her tube feeding cycle, will consider changing TF formula. Otherwise no changes to TF regimen//formula at this time. The patient was agreeable to today's plan. She is welcome to follow-up with me as needed. GI Symptoms or Concerns Nutrition Reassessment - Established patientAnthropometric dataNo recent change in weight reported. BMI is WNL.Other SupplementsKF Standard 1.4, Creon, Vitamin D Food/Exercise HistoryThe patient has gastroparesis, EPI (on Creon), and new diagnosis of reactive hypoglycemia thought to be related to acarbose. She is on supplemental GJ tube feeds for gastroparesis. She takes 3 cartons of DNA SEQ Standard 1.4 at [facility] (8p-8a). Tube feeding provides 1365 calories, 153 g CHO, 9 g fiber, and 60 g protein and meets ~80% of nutritional needs. She eats orally during the day. She notes that hypoglycemic episodes happen in the daytime hours and have not occurred at night during TF administration. She has observed some low blood sugar levels in the morning (after stopping her tube feeding) but not on a consistent basis. She does not eat much during the day but will eat a standard amount of food for dinner which is around 5-6 pm. Food choices are mostly carbohydrates with daytime foods being banana, salvador crackers, flavored yogurt, and occasional Fairlife protein shake. Dinner meals vary, but examples given include tacos (chicken and rice), pizza, spaghetti noodles with butter or Shadi sauce. Estimated Energy and Nutrient [id number] calories/fpk46-16 g protein/dayNutrition DiagnosisAltered nutrition-related lab values (glucose) related to possible inadequate protein/fat intake and/or eating schedule as evidenced by patient self-report of reactive hypoglycemic episodes.Nutrition Discussion and EducationThe patient was seen in follow-up. She was previously seen by a [facility] dietitian in 2020. Her primary concern today is reactive hypoglycemia. She reports tolerating her supplemental tube feeding well. Hypoglycemic episodes to not appear to be happening at night, therefore no change to tube feeding product or regimen was recommended today. The patient reports struggling with knowing what to eat during the day with her dx of gastroparesis, EPI and hypoglycemia. Her current meal pattern is to have a small snack mid-day and a normal dinner at 5-6pm. She is mostly consuming carbohydrate foods. I encouraged her to pair protein and/or a small amount of fat (with Creon) with carbohydrate foods to help stabilize her blood sugar. Emphasis was placed on adding gastroparesis friendly protein sources such as egg whites, eggs, lean soft meats, plain yogurt, and small amounts of peanut butter, cheese, etc. If hypoglycemic episodes continue despite diet changes and/or start to happen during or after her tube feeding, will consider changing TF formula. The patient was agreeable to today's plan. GI Symptoms or Concerns Previous History Review below copied and updated 10/05/22 Curr ent treatment: 2-3 can [employer] via J tubefamotidine omeprazolezofranphenergran miralax iron infusion x mult and recurrent due to recurrent drops in ferritin, non response to oral ironPrior treatment:geetha perales --> diarrheaIVF via midline (removed 09/2020)compazine --> dystonic reactionreglan -->anxiety, lansoprazole -->did not workzantac --> did not work famotidine -> did not work Prior GI EVAL: udated 05/30/21- LABS:04/30: LOW B12 140 (starting injxns) -> 440 08/[id number], IgG, celiac, Laine A/E normal 2021 LOW PANCREATIC ELASTASEferritin 11 --> 95 w/ injectionshgb 13.: Ca 8.0 (low), total protein 6.0 (low), urea 5 (low), wbc 3.7 (low), hgb 11.5 (low)10/12/20: hgb 12.4, bun 10, ferritin 114, B12 502, liver panel NL, TSH 0.09, free T4 1.08 EKG: QT/QTc 09/05: 390/464IMAGING:- CT scan abd/pelvis 09/05/20: negative - CT scan without contrast due to contrast allergy in March 2018 was normal.- [address] scan head (w and w/out contrast) 09/05: negative - US 2019; neg Scopes e/c neg 08/28 w/ d/g/i/c biopsies PAST MEDICAL HISTORY1. Hypothyroid, previously hyperthyroid status post thyroidectomy.2. Kidney stones.3. Shingles.4. Anxiety and depression.5. Vitamin D deficiency.6. CL requiring IV iron as did not respond to po iron; not vegan or vegetarian. She menstruates on a regular basis, but not heavy periods. She has had 4 childbirths. EGD neg. declines colonoscopy despite multiple discussions . B12 def8. Alopecia areata SOCIAL HISTORYMachelle is originally from [place]. Her works for the [employer]. 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 She does not follow any specific dietary restrictions.FAMILY HISTORYNegative for celiac, IBD, or colorectal cancer. Her father has some colon polyps, nobody else has colon polyps or colon cancer. A grandmother had esophageal stricture that required dilation at the end of her life. GI Symptoms or Concerns Vangie Leon is a pleasant 37-year-old fe male who is seen today in followup.The patient has been following with our group for history of gastroparesis. She also has a history of hyperthyroidism, iron deficiency anemia as well as issues with reflux, and constipation. She also has a history of alopecia. She did undergo EGD and colonoscopy in August 2021, which showed normal esophagus, stomach, and small bowel. Biopsies were unremarkable. Colonoscopy showed normal colon and TI. Biopsies of her colon and TI were unremarkable. It was recommended that her next colonoscopy be completed in 10 years. Her gastroparesis had been managed by use of promethazine. She also has a GJ tube for [employer] tube feeds. She also has Zofran to use as needed. Reflux symptoms have been controlled with use of omeprazole and famotidine. After her last visit, she did have testing checking for pancreatic insufficiency, which showed a pancreatic elastase of less than 50. She was started on Creon. She also GI Symptoms or Concerns GI Symptoms or Concerns Additional Narrative Current treatment: 2-3 can [employer] via J tubeomeprazolezofranphenergran miralax iron infusion x mult and recurrent due to recurrent drops in ferritin, non response to oral ironPrior treatment:trulancthomas callawayzess --> diarrheaIVF via midline (removed 09/2020)compazine --> dystonic reactionreglan -->anxietylansoprazole -->did not workzantac --> did not work famotidine -> did not work Prior GI EVAL: udated 05/30/21- LABS:04/30: LOW B!@ 140 (starting injxns)ferritin 11 --> 95 w/ injectionshgb 13.55: Ca 8.0 (low), total protein 6.0 (low), urea 5 (low), wbc 3.7 (low), hgb 11.5 (low)10/12/20: hgb 12.4, bun 10, ferritin 114, B12 502, liver panel NL, TSH 0.09, free T4 1.08 EKG: QT/QTc 09/05: 390/464IMAGING:- CT scan abd/pelvis 09/05/20: negative - CT scan without contrast due to contrast allergy in March 2018 was normal.- [address] scan head (w and w/out contrast) 09/05: negative - US 2017, 2019; neg PAST MEDICAL HISTORY1. Hypothyroid, previously hyperthyroid status post thyroidectomy.2. Kidney stones.3. Shingles.4. Anxiety and depression.5. Vitamin D deficiency.6. CL requiring IV iron as did not respond to po iron; not vegan or vegetarian. She menstruates on a regular basis, but not heavy periods. She has had 4 childbirths. EGD neg. declines colonoscopy despite multiple discussions . B12 def8. Alopecia areata SOCIAL HISTORYShe is originally from [place]. Her works for the [employer]. 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 She does not follow any specific dietary restrictions.FAMILY HISTORYNegative for celiac, IBD, or colorectal cancer. Her father has some colon polyps, nobody else has colon polyps or colon cancer. A grandmother had esophageal stricture that required dilation at the end of her life. Additional Narrative Current treatment: 2-3 can [employer] via J tubeomeprazolezofranphenergran iron infusion Prior treatment:trulancnilton linzess --> diarrheaIVF via midline (removed 09/2020)compazine --> dystonic reactionreglan -->anxietylansoprazole -->did not workzantac --> did not work famotidine -> did not work Prior GI EVAL:- LABS:09/05/20: Ca 8.0 (low), total protein 6.0 (low), urea 5 (low), wbc 3.7 (low), hgb 11.5 (low)10/12/20: hgb 12.4, bun 10, ferritin 114, B12 502, liver panel NL, TSH 0.09, free T4 1.08 EKG: QT/QTc 09/05: 390/464IMAGING:- CT scan abd/pelvis 09/05/20: negative - CT scan without contrast due to contrast allergy in March [address] was [address].- [address] scan head (w and w/out contrast) 09/05: negative - US 2017, 2019; neg PAST MEDICAL HISTORY1. Hypothyroid, previously hyperthyroid status post thyroidectomy.2. Kidney stones.3. Shingles.4. Anxiety and depression.5. Vitamin D deficiency.6. CL requiring IV iron as did not respond to po iron; not vegan or vegetarian. She menstruates on a regular basis, but not heavy periods. She has had 4 childbirths. EGD neg. declines colonoscopy despite multiple discussions MEDICATIONSSee Next Gen, reviewed with Vangie 10/22/20SOCIAL HISTORYMachelle is originally from [place]. Her works for the [employer]. 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 She does not follow any specific dietary restrictions.FAMILY HISTORYNegative for celiac, IBD, or colorectal cancer. Her father has some colon polyps, nobody else has colon polyps or colon cancer. A grandmother had esophageal stricture that required dilation at the end of her life. GI Symptoms or Concerns 36-year-old female with history of gastr oparesis complicated by severe malnutrition, reflux, and weight loss presenting for follow-up. Her last visit was in December. Her current medications for reflux include omeprazole 40 milligrams twice a day. Her anti nausea medications include Zofran and promethazine. She is getting half of her calories through eating and half of her calories through jejunal tube feeds. In regards to her current symptoms, her weight is stable. However she is having do increase in her reflux symptoms. Multiple of her medications are causing nausea, and she is switching these 2 through her tube. She has had significant constipation alternating with significant emptying of stool. Additionally, she is having patches of hair loss on her head. At our last visit, she was having improved overall quality of nails and hair, but patches of hair loss is new. She is being treated by her primary care provider with a short course of tapering prednisone and topica Additional Narrative Current treatment: 2-3 can [employer] via J tubeomeprazolefamotidinezofranphenergran (rx sent today)iron infusion Prior treatment:trulance (stopped with tube feeds given diarrhea)IVF via midline (removed 09/2020)compazine --> dystonic reactione reglan -->anxietylansoprazole -->did not workzantac --> did not work Prior GI EVAL (updated 10/22/20):- LABS:09/05/20: Ca 8.0 (low), total protein 6.0 (low), urea 5 (low), wbc 3.7 (low), hgb 11.5 (low)10/12/20: hgb 12.4, bun 10, ferritin 114, B12 502, liver panel NL, TSH 0.09, free T4 1.08 EKG: QT/QTc 09/05: 390/464IMAGING:- CT scan abd/pelvis 09/05/20: negative - CT scan without contrast due to contrast allergy in March [address].- [address] scan head (w and w/out contrast) 09/05: negative - US 2019; neg PAST MEDICAL HISTORY1. Hypothyroid, previously hyperthyroid status post thyroidectomy.2. Kidney stones.3. Shingles.4. Anxiety and depression.5. Vitamin D deficiency.6. CL requiring IV iron as did not respond to po iron; not vegan or vegetarian. She menstruates on a regular basis, but not heavy periods. She has had 4 childbirths. EGD neg. declines colonoscopy despite multiple discussions MEDICATIONSSee Next Gen, reviewed with Vangie 10/22/20SOCIAL HISTORYShnilton is originally from [place]. Her works for the [employer]. 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 She does not follow any specific dietary restrictions.FAMILY HISTORYNegative for celiac, IBD, or colorectal cancer. Her father has some colon polyps, nobody else has colon polyps or colon cancer. A grandmother had esophageal stricture that required dilation at the end of her life. GI Symptoms or Concerns 35 year old female with history of gastr oparesis, severe malnutrition, severe reflux and significant weight loss presenting for follow-up. Her current medications include omeprazole 40 milligrams twice a day and famotidine as needed. Her anti nausea medications include Zofran once daily as needed and then a grand twice a day. In regards to nutrition she has a GJ tube for nutrition. She is taking 3 cans [employer] daily and 12 ounces water through tube. Additionally she is tolerating some oral intake of Sunday of food. In general she feels quite well. She has gained 8 pounds since our last visit in October. She feels better than she has for greater than 8 months. She has had improved quality of nails and hair. GI Symptoms or Concerns 35-year-old female with gastroparesis, s evere malnutrition and significant weight loss presenting for follow-up. She had significant weight loss this year and was only ingesting about 600 calories per day. She did not respond to daily IV fluids. Therefore we placed an GJ tube for enteral nutritional supplement in September of 2020. Thankfully her body weight has stabilized with doing this. The she is doing to to 3 cans per day of [employer] supplement in addition to oral intake. She is using less than 200 mils of water per her G- J tube for flushing. She is not ingesting significant hydration in the form of water or hydration fluids. In regards to current symptoms, she is having some incisional pain around the tube site as well as some drainage. There is no redness, fevers, swelling. Her reflux is currently controlled with omeprazole and famotidine. Her nausea is controlled with Zofran and Phenergan. Additional Narrative Current treatment: 2-3 can [employer] via J tubeomeprazolefamotidinezofranphenergran (rx sent today)iron infusion Prior treatment:trulance (stopped with tube feeds given diarrhea)IVF via midline (removed 09/2020)compazine --> dystonic reactione reglan -->anxietylansoprazole -->did not workzantac --> did not work Prior GI EVAL (updated 10/22/20):- LABS:09/05/20: Ca 8.0 (low), total protein 6.0 (low), urea 5 (low), wbc 3.7 (low), hgb 11.5 (low)10/12/20: hgb 12.4, bun 10, ferritin 114, B12 502, liver panel NL, TSH 0.09, free T4 1.08 EKG: QT/QTc 09/05: 390/464IMAGING:- CT scan abd/pelvis 09/05/20: negative - CT scan without contrast due to contrast allergy in March 2018 was [address].- [address] scan head (w and w/out contrast) 09/05: negative - US 2019; neg PAST MEDICAL HISTORY1. Hypothyroid, previously hyperthyroid status post thyroidectomy.2. Kidney stones.3. Shingles.4. Anxiety and depression.5. Vitamin D deficiency.6. LC requiring IV iron as did not respond to po iron; not vegan or vegetarian. She menstruates on a regular basis, but not heavy periods. She has had 4 childbirths. EGD neg. declines colonoscopy despite multiple discussions MEDICATIONSSee Next Gen, reviewed with Vangie 10/22/20SOCIAL HISTORYMachelle is originally from [place]. Her works for the [employer]. 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 She does not follow any specific dietary restrictions.FAMILY HISTORYNegative for celiac, IBD, or colorectal cancer. Her father has some colon polyps, nobody else has colon polyps or colon cancer. A grandmother had esophageal stricture that required dilation at the end of her life. Additional Narrative Current treatment: IVF 1L daily omeprazolefamotidinecompazine zofran trulance Prior therapeutic trials include Reglan, which caused significant anxiety, lansoprazole, which did not seem to work, and Zantac given without a PPI, which did not work.Prior Eval: (updated 09/14/20)- Labs ([facility]) 09/05/20: Ca 8.0 (low), total protein 6.0 (low), urea 5 (low), wbc 3.7 (low), hgb 11.5 (low)- EKG: QT/QTc 09/05: 390/464- CT scan abd/pelvis [facility] 09/05: negative (report and images reviewed)- CT scan head (w and w/out contrast) 09/05: negative - CL requiring IV iron as did not respond to po iron (hgb 8.5 -> 13.2; MCV 70 -> 85 04/2020); Of note, she is not vegan or vegetarian. She menstruates on a regular basis, but not heavy periods. She has had 4 childbirths. Reports as of 08/27 recent hematology labs show normal CBC and iron. - EGD in [place], which showed only a small hiatal hernia. Biopsies of the stomach and duodenum were normal. She did not undergo a colonoscopy-. She had an abdominal ultrasound in March 2018, which we repeated in 2019, both of which were normal. A CT scan without contrast due to contrast allergy in March 2018 was normal. - gastric emptying study was positive (have not been able to get through MR)PAST MEDICAL HISTORY1. Hypothyroid, previously hyperthyroid status post thyroidectomy.2. Kidney stones.3. Shingles.4. Anxiety and depression.5. Vitamin D deficiency.6. CL {did not respond to oral iron, declines colonoscopy despite multiple discussions , see prior EGD below}MEDICATIONS1. Gabapentin for shingles.2. BuSpar for anxiety.3. Omeprazole once daily.4. Levothyroxine.5. Citalopram for depression.6. Vitamin D.7. Compazine 8. Zofran 4 mg p.r.n. nausea.9 Clonazepam 1 mg bid (weaned down several years ago from 6 mg daily)SOCIAL HISTORYMachelle is originally from [place]. Her works for the [employer]. 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 She does not follow any specific dietary restrictions.FAMILY HISTORYNegative for celiac, IBD, or colorectal cancer. Her father has some colon polyps, nobody else has colon polyps or colon cancer. A grandmother had esophageal stricture that required dilation at the end of her life. GI Symptoms or Concerns Vangie is a 35-year-old female, presenti for followup with gastroparesis and weight loss. Her gastroparesis has been out of control since June 2020 with significant volume depletion, vomiting, and weight loss. She has lost more than 10 lb since then. She is ingesting about 600 calorie of food per day. She is tolerating essentially liquids only. Vomits with solid. Current medications include Zofran 4 mg as needed, Compazine 5 mg as needed, Trulance 3 mg for constipation/constipation-predominant irritable bowel syndrome, omeprazole 40 mg twice a day, and famotidine as needed. We initiated IVF via midline several weeks ago. Her symptoms escalated with several hospitalizations for syncope, dizziness. Evaluation through [facility] detailed below including labs, CT scan head, CT scan abdomen (images reviewed). Because of this we did increased her IVF from 2 L NS/week to 1 L NS/day. She does feel better hydrated, but this has not helped her increase her oral intake. She was also referred to measurement and sensing technician to try and support her dietary intake (note reviewed). GI Symptoms or Concerns FOLLOW-UP RD VISITAnthropometric Data Jose berry reports that she weighed ~157 lbs. at the beginning of June. Her weight today, on her scale at home, is 127 lbs. Her UBW is 145 - 150 lbs. She has lost ~9 lbs. since last visit, which is significant. Patient notes that her weight loss has slowed though in the past few weeks; she attributes this to the IVF.Other Supplements N/AFood & Exercise HistoryPatient reports that her GI symptoms are the same since last visit; she is not able to tolerate more food/beverages without abdominal upset or vomiting. She is drinking PxRadia shakes 3 times daily and they have ~150 calories. She has tried other shakes, including DNA SEQ, but she didn't like or tolerate them well. Patient is eating crackers with peanut butters, yogurt, and popsicles in between. She is drinking water.Estimated Energy & Nutrition NeedsShe estimates her energy intake to be between 400 - 600 calories daily. This has not changed since last visit.Nutrition DiagnosisFood- and nutrition-related knowledge deficit RT food/nutrition recommendations for gastroparesis AEB patient self-report.Nutrition Discussion & EducationPatient's weight continues to decrease significantly. She has now lost ~30 lbs. since the beginning of June. Her GI symptoms have not changed since last visit and she hasn't been able to really increase her calories much since last visit. She is getting more protein in her eating patterns through the shakes and peanut butter though. Patient expresses wanting a G-J tube and she is going to be discussing this with Dr. Santos tomorrow. We discussed continuing to push calories with fluids, soft foods, etc. in the meantime. Patient was encouraged to follow-up within ~2 weeks if she does not have G-J tube placement arranged. 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 Patient's questions/concerns were addressed. GI Symptoms or Concerns Vangie is a 35-year-old female, presenti for followup with gastroparesis and weight loss. Her gastroparesis has been quite out of control since June 2020. Specifically, she has had nausea, bloating, and weight loss of about 10 pounds. She is only ingesting 400 to 600 calories per day. Her current medications include Zofran 4 mg as needed, Compazine 5 mg as needed, Trulance 3 mg for constipation/constipation-predominant irritable bowel syndrome, omeprazole 40 mg twice a day, and famotidine as needed. Because she was doing so poorly, we started IV fluids. She took this 2 times over the past week through a midline, which was placed. However, she has not had a significant improvement in her symptoms. Her weight is notable for a 3-pound decrease. She has tried to eat some solid food and had significant vomiting.Laboratories reviewed through [facility]: CMP, magnesium, and phosphorus normal. Additional Narrative Prior thera peutic trials include Reglan, which caused significant anxiety, lansoprazole, which did not seem to work, and Zantac given without a PPI, which did not work.In regard to evaluation, I have encouraged her to undergo an evaluation with an endoscopy and a colonoscopy as well as an MR enterography given her history of iron-deficiency anemia. Due to financial constraints, she has declined this evaluation. She did have an EGD with biopsies in 2017, which was negative, but of note, the iron-deficiency anemia is new since then.PAST MEDICAL HISTORY1. Hypothyroid, previously hyperthyroid status post thyroidectomy.2. Kidney stones.3. Shingles.4. Anxiety and depression.5. Vitamin D deficiency.6. CL {did not respond to oral iron, declines colonoscopy despite multiple discussions , see prior EGD below}MEDICATIONS1. Gabapentin for shingles.2. BuSpar for anxiety.3. Omeprazole once daily.4. Levothyroxine.5. Citalopram for depression.6. Vitamin D.7. Compazine 8. Zofran 4 mg p.r.n. nausea.9 Clonazepam 1 mg bid (weaned down several years ago from 6 mg daily)SOCIAL Yeh is originally from [place]. Her works for the [employer]. 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 She does not follow any specific dietary restrictions.FAMILY HISTORYNegative for celiac, IBD, or colorectal cancer. Her father has some colon polyps, nobody else has colon polyps or colon cancer. A grandmother had esophageal stricture that required dilation at the end of her life.Prior GI Eval: - CL requiring IV iron as did not respond to po iron (hgb 8.5 -> 13.2; MCV 70 -> 85 04/2020); Of note, she is not vegan or vegetarian. She menstruates on a regular basis, but not heavy periods. She has had 4 childbirths. Reports as of 08/27 recent hematology labs show normal CBC and iron. - EGD in [place], which showed only a small hiatal hernia. Biopsies of the stomach and duodenum were normal. She did not undergo a colonoscopy-. She had an abdominal ultrasound in March 2018, which we repeated in 2019, both of which were normal. A CT scan without contrast due to contrast allergy in March 2018 was normal. - gastric emptying study was positive (have not been able to get through MR) Additional Narrative Prior Eval: See below - has had egd (neg) colonoscopy and ges (per patient w gastroparesis). Prior therapeutic trials include Reglan, which caused significant anxiety, lansoprazole, which did not seem to work, and Zantac given without a PPI, which did not work.In regard to evaluation, I have encouraged her to undergo an evaluation with an endoscopy and a colonoscopy as well as an MR enterography given her history of iron-deficiency anemia. Due to financial constraints, she has declined this evaluation. She did have an EGD with biopsies in 2017, which was negative, but of note, the iron-deficiency anemia is new since then.PAST MEDICAL HISTORY1. Hypothyroid, previously hyperthyroid status post thyroidectomy.2. Kidney stones.3. Shingles.4. Anxiety and depression.5. Vitamin D deficiency.6. CL {did not respond to oral iron, declines colonoscopy despite multiple discussions , see prior EGD below}MEDICATIONS1. Gabapentin for shingles.2. BuSpar for anxiety.3. Omeprazole once daily.4. Levothyroxine.5. Citalopram for depression.6. Vitamin D.7. Compazine 8. Zofran 4 mg p.r.n. nausea.9 Clonazepam 1 mg bid (weaned down several years ago from 6 mg daily)SOCIAL Yeh is originally from [place]. Her works for the [employer]. 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 She does not follow any specific dietary restrictions.FAMILY HISTORYNegative for celiac, IBD, or colorectal cancer. Her father has some colon polyps, nobody else has colon polyps or colon cancer. A grandmother had esophageal stricture that required dilation at the end of her life.Prior GI Eval: - CL requiring IV iron as did not respond to po iron (hgb 8.5 -> 13.2; MCV 70 -> 85 04/2020); Of note, she is not vegan or vegetarian. She menstruates on a regular basis, but not heavy periods. She has had 4 childbirths. Reports as of 08/27 recent hematology labs show normal CBC and iron. - EGD in [place], which showed only a small hiatal hernia. Biopsies of the stomach and duodenum were normal. She did not undergo a colonoscopy-. She had an abdominal ultrasound in March 2018, which we repeated in 2019, both of which were normal. A CT scan without contrast due to contrast allergy in March 2018 was normal. - gastric emptying study was positive (have not been able to get through MR) GI Symptoms or Concerns Vangie is a 35-year-old female presentin for followup of presumed diagnosis of gastroparesis. She has been doing quite horribly since June of this year. She had a long 9 day period which caused significant symptoms and since then has spiraled out of control. She has significant nausea, bloating, and has had significant weight loss of likely 8 or so pounds. She is ingesting only about 400 to 600 mg daily. Her current medications include Zofran 4 mg as needed, Compazine 5 mg as needed, Trulance 3 mg for constipation/constipation-predominant IBS, omeprazole 40 mg twice a day, and famotidine as needed. GI Symptoms or Concerns NEW RD VISITAnthropometric Data Patient reports that she weighed ~157 lbs. at the beginning of June. Her weight today, on her scale at home, is 136 lbs. Her UBW is 145 - 150 lbs. Other Supplements N/AFood & Exercise HistoryPatient has been following the Phase 1 Gastroparesis Diet since the second week of June. Her GI symptoms have not improved; she reports experiencing nausea, bloating, vomiting, low energy, and shakiness everyday.Patient has been eating popsicles, salvador cracker, soup, protein shakes, bananas, and yogurt. She has been drinking tea and sometimes soda. Estimated Energy & Nutrition NeedsShe estimates her energy intake to be between 400 - 600 calories daily. Nutrition DiagnosisFood- and nutrition-related knowledge deficit RT food/nutrition recommendations for gastroparesis AEB patient self-report.Nutrition Discussion & EducationPatient was educated on food/nutrition recommendations for gastroparesis. We discussed general, lifestyle changes that may be helpful including: chewing foods thoroughly, sipping vs. gulping fluids, and eating small, frequent meals. We discussed how fiber and solid fat can empty slower through the stomach, which is why they should be reduced to help with GI Symptom improvement. We reviewed high fiber, high solid fat foods to limit. Additionally, we reviewed several appropriate alternatives that may be better tolerated. Patient was also educated on the Three Phase Dietary Plan in the event it's ever indicated. Patient's questions were addressed and they'll reach out with questions that arise. GI Symptoms or Concerns Vangie is a 35-year-old female, presenti for followup of gastroparesis, constipation, and reflux. Her history is also notable for a significant weight loss and iron-deficiency anemia. Her current medication regimen is Trulance, which she has not yet started actually. Due to the insurance issue, she just got this medication and will be starting it this weekend. She takes omeprazole 40 mg twice a day and Compazine 3 times a day. With this, she has had improvement in her symptom control and has gained back 8 pounds since I last saw her in April. We also went over our gastroparesis folder with information about dietary intake. She has yet to meet with our dietitian.Prior therapeutic trials include Reglan, which caused significant anxiety, lansoprazole, which did not seem to work, and Zantac given without a PPI, which did not work.In regard to evaluation, I have encouraged her to undergo an evaluation with an endoscopy and a colonoscopy as well as an MR enterography gi Additional Narrative PAST MEDICA L HISTORY1. Hypothyroid, previously hyperthyroid status post thyroidectomy.2. Kidney stones.3. Shingles.4. Anxiety and depression.5. Vitamin D deficiency.6. CL {did not respond to oral iron, declines colonoscopy despite multiple discussions , see prior EGD below}MEDICATIONS1. Gabapentin for shingles.2. BuSpar for anxiety.3. Omeprazole once daily.4. Levothyroxine.5. Citalopram for depression.6. Vitamin D.7. Promethazine p.r.n. nausea.8. Zofran p.r.n. nausea.SOCIAL HISTORYMachelle is originally from [place]. Her works for the [employer]. 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 She does not follow any specific dietary restrictions.FAMILY HISTORYNegative for celiac, IBD, or colorectal cancer. Her father has some colon polyps, nobody else has colon polyps or colon cancer. A grandmother had esophageal stricture that required dilation at the end of her life.Prior GI Eval: - CL requiring IV iron as did not respond to po iron (hgb 8.5 -> 13.2; MCV 70 -> 85 04/2020); Of note, she is not vegan or vegetarian. She menstruates on a regular basis, but not heavy periods. She has had 4 childbirths.- EGD in [place], which showed only a small hiatal hernia. Biopsies of the stomach and duodenum were normal. She did not undergo a colonoscopy-. She had an abdominal ultrasound in March 2018, which we repeated in 2019, both of which were normal. A CT scan without contrast due to contrast allergy in March 2018 was normal. - gastric emptying study was positive (have not been able to get through MR) Additional Narrative PAST MEDICA L HISTORY1. Hypothyroid, previously hyperthyroid status post thyroidectomy.2. Kidney stones.3. Shingles.4. Anxiety and depression.5. Vitamin D deficiency.MEDICATIONS1. Gabapentin for shingles.2. BuSpar for anxiety.3. Omeprazole once daily.4. Levothyroxine.5. Citalopram for depression.6. Vitamin D.7. Promethazine p.r.n. nausea.8. Zofran p.r.n. nausea.SOCIAL Ruba is originally from [place]. Her works for the [employer]. 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 She does not follow any specific dietary restrictions. As noted above, she is not a vegetarian or vegan.FAMILY HISTORYNegative for celiac, IBD, or colorectal cancer. Her father has some colon polyps, nobody else has colon polyps or colon cancer. A grandmother had esophageal stricture that required dilation at the end of her life. GI Symptoms or Concerns Vangei is a 35-year-old female with prio r diagnosis of gastroparesis, presenting for follow-up of abdominal pain, vomiting, constipation. Please see my very detailed note from February of this year. Since that time, she has lost another 10 pounds due to postprandial abdominal pain, limiting oral intake, and vomiting of solid foods. Her total weight loss is about 40 pounds down from 170 pounds to 130 pounds. She is having bowel movements every 2 to 3 weeks. Her current medications include Zofran as needed and Compazine as needed for nausea. Prior therapeutic trials include Reglan, which caused significant anxiety, lansoprazole which did not seem to work, and Zantac given without a PPI, which did not work. She is also currently on omeprazole 40 mg twice a day, without any notable change of her symptoms with increasing to twice a day. GI Symptoms or Concerns Vangie is a 35-year-old female, presenti for constellation of upper GI and lower GI symptoms as well as iron deficiency anemia.Her records are reviewed in [facility]. Prior medical records from [place] are not available. Approximately 2 years ago, she developed progressive acute illness. Eventually, she was found to be hyperthyroid. Through a long process, she eventually underwent thyroid removal at [facility]. She has been struggling with her thyroid since then, and has only recently maintained a normal TSH level. However, in November of this year, she developed an increase in GI symptoms. This includes both upper GI and lower GI symptoms. Specifically, she has an increase in reflux symptoms by which she means burping, substernal discomfort, as well as regurgitation. She vomits solid food on a daily basis. She also has epigastric pain, which radiates into her right upper quadrant as well as to her left upper quadrant. She has dropped 30 pounds from 170 pounds down to 140 pounds. Functional Status Date Functional Assessmen t No Information Instructions Date Instruction Additional Infor jac 1. Continue tube fee ding as you are. If hypoglycemic episodes begin to occur during or are consistently present after feeding, will consider changing formulas.2. To help with blood sugar control during the day, avoid eating carbs alone. Continue to pair carbohydrate foods with protein and/or a small amount of fat. 3. To reach me with questions/concerns, email via the patient portal or contact my coordinator at [phone] ext [phone]. Related to Gastroparesis 1. Continue tube fee ding as you are. If hypoglycemic episodes start to happen during or after feeding can consider changing formulas.2. To help with blood sugar control during the day, avoid eating carbs alone. Pair carbohydrate foods with protein and/or a small amount of fat. The following are good combinations for both gastropareis and pancreatic insufficiency:- egg whites or 1 full egg with 1/2 piece toast or 1/2 bagel- 1 tbsp peanut butter spread on salvador crackers- 1/2 cup plain reduced fat Israeli yogurt with 1/2 banana- 1-2oz shredded chicken breast or lean ground turkey with pasta or rice- 1/2 cup soft fruit (banana, melon, canned fruit) with a string cheese- Fairlife protein shake3. To reach me with questions/concerns, email via the patient portal or contact my coordinator at [phone] ext [phone]. Related to Gastroparesis It was nice to meet you!-Continue on Creon. Add in 4 caps before bedtime during time of tube feeds-Continue with promethazine and zofran-Continue with omeprazole and famotidine-Keep appointment with endocrinology. Keep an eye on your blood sugars. Be sure to have a simple form of sugar nearby in episodes of hypoglycemia-We will proceed with imaging of pancreas to ensure no abnormalities are seen -We will recheck labs (iron, ferritin, b12) at time of your next visit. Plan to follow up in 3 months Related to Gastroparesis [place]- please provid e patient with 500mL pump bag. Quantity 30/month Related to Gastroparesis IR to place GJ tube feed at ANW Related to Vomiting, intractability of vomiting not specified, presence of nausea not specified, unspecified vomiting type IR to place GJ tube feed at ANW Related to Vomiting, intractability of vomiting not specified, presence of nausea not specified, unspecified vomiting type 1. Continue with pro tein shakes TID. Increase as able and push calories through other beverages too. 2. Continue with solid snacks as tolerated. 3. Follow-up in ~2 weeks if no G-J tube placement. Related to Weight loss 1 L NS daily via mid line administered at home over 1 hour, n = 99, Related to Gastroparesis Place midline - sing le lumen 5 cm length. Related to Volume depletion Starting 08/24 for do se of 99: 1 L NS given via midline over 1 hour Related to Volume depletion IVF: 1 L NS twice a week Related to Gastroparesis 1 L IV fluid over 1 [address] a week[address] Place peripheral IV for infusion, homebound patient. 99 doses Related to Volume depletion 1. Trial of Core Pow er, Fairlife Protein, Naked Protein, or Ripple Protein drinks. 2. Work to increase calories where possible. Aim for calorie-containing beverages (i.e. Gatorade, juices), full-fat liquids, and other options discussed. 3. Consider expanding to add some tender, lean proteins and/or low fiber starches. Related to Gastroparesis Gastroparesis Folder Related to Gastroparesis Assessments Type Assessment Date No Information Patient Care Teams Name Effective Dates (start - stop) Status Members No Information
--- OUTSIDE RECORDS SUMMARY | 2024-05-18 14:27 | XMS_ITS | Continuity of Care Document ---
Author Organization [facility] Address [address] [address] [place] [address] Care Team Providers Care Financial Services Counselor Name Role Phone [place], [place] Unavailable Unav ailable Procedures Procedure Date Ugi En Colono Advance Directives Directive Yes / No Effective Date File Name No Information Encounters Encounter Description Practice Location Reason(s) For Visit Diagnoses Date Provider Providers Copied on Encounter [facility], [address] [address], [place], [place], [id number], [facility] No Information [facility]. [address] [address], [place], [place], [id number], . tel:[phone] Referring Provider: Bea Santos MD, [address] [address], [place], [address] . tel:[phone] Family History Family Member Type Diagnosis Age At Onset No Information Payers Payer name Insurance type Covered democrat ID Authoriza tisharon(s) [employer] [facility] [id number] Social History Type Description Quantity Date Captured Comments Sex Female Smoking Status No Information Chief Complaint And Reason For Visit No Information Reason For Referral Reason For Referral No Information History Of Present Illness Encounter Date Complaint History Of Prese nt Illness No Information Functional Status Date Functional Assessmen t No Information Instructions Date Instruction Additional Infor mation No Information Assessments Type Assessment Date No Information Patient Care Teams Name Effective Dates (start - stop) Status Members No Information
[2024-05-18 14:28] VITALS: BP 131/88; PULSE 86; RESP 16; TEMP 36.3; O2SAT 99; BMI 25.1
--- OUTSIDE RECORDS SUMMARY | 2024-05-18 14:53 | XMS_ITS | Clinical Summary ---
Author Organization [facility] Address [place], [place] [address] Care Team Providers Care Case Finisher Name Role Phone Coreen Tran NP Primary Care Provider [phone] Sylvain Ardon MD Unavailable [phone] Allergies Active Allergy Reactions Criticality Noted Date Comments Acarbose GI Upset 01/16/2023 Amoxicillin Nausea And Vomiting Low 12/03/2017 Iodine And Iodide Containing Products Rash 02/05/2009 Medications promethazine (PHENERGAN) 25 mg tabletIndications: Gastroparesis Take 1 tablet by mouth every 6 hours if needed. 90 tablet 3 020 Active tube feedingIndications :Gastroparesis For home use. Length:99 months iMICROQ 1.4 @ 50mL/hr via GJ tube, water [...] be used to read blood sugars, follow bank operations officer directions. 6 Each 3 024 Active FreeStyle Imani 3 [place] for continuous blood glucose monitor (CGM)Indications:H ypoglycemia To be used to read blood sugars follow bank operations officer directions. 1 Each 024 Active FreeStyle Imani [...] Type Department Care Team Description 05/16/2024 [address] [place] [address] Coreen Tran RETAIL LOSS PREVENTION OFFICER Refill Request (Cyanocobalamin, Mirtazapine) 04/06/2024 [address] [place] [address] Coreen Tran RETAIL LOSS PREVENTION OFFICER Refill Request (Escitalopram Oxalate) 03/08/2024 [address] [place] [address] Coreen Tran RETAIL LOSS PREVENTION OFFICER Refill Request (Buspirone) 03/05/2024 2:15 PM COMPLIANCE CONSULTANT Orders Only [phone] [place] [address] Lab, Farm Lab 03/05/2024 Travel 03/03/2024 Telephone [facility] [address] [facility] [address] [place] [id number] Payal Patel MD iron labs 02/18/2024 9:45 AM COMPLIANCE CONSULTANT Orders Only [phone] [place] [address] Lab, Farm Lab 02/18/2024 Travel from Last [...] Date Recorded PHQ-2 TOTAL SCORE 1 07/06/2023 [facility] [place] [facility] - Occupational Stress [...] [facility] [address] [facility] [address] [facility] [address] [place] [address] Sylvain Ardon MD [address] [facility] [address] [facility] [address] [place] [address] Health Maintenance Due Date Last Done Comments [...] Discontinued , 03/18/2021, 02/24/2016 (Completed outside of [facility]) Pneumococcal series for age 6-49 Aged Out No longer eligible based on patient's age to complete this topic Procedures Procedure Name Priority Date/Time Associated Diagnosis Comments CBC WITH AUTO DIFFERENTIAL Routine 03/05/2024 2:17 PM COMPLIANCE CONSULTANT Iron deficiency VITAMIN B12 Routine 03/05/2024 2:17 PM COMPLIANCE CONSULTANT Iron deficiency FERRITIN Routine 03/05/2024 2:17 PM COMPLIANCE CONSULTANT Iron deficiency IRON PLUS IRON BINDING CAP Routine 03/05/2024 2:17 PM COMPLIANCE CONSULTANT Iron deficiency CBC WITH AUTO DIFFERENTIAL Routine 03/05/2024 2:17 PM COMPLIANCE CONSULTANT Iron deficiency T4,FREE Routine 02/18/2024 9:51 AM COMPLIANCE CONSULTANT Postoperative hypothyroidism TSH Routine 02/18/2024 9:51 AM COMPLIANCE CONSULTANT Postoperative hypothyroidism HPV HIGH RISK Routine 03/18/2021 11:45 AM COMPLIANCE CONSULTANT Pap smear for cervical cancer screening from Last 3 Months or Most Recently Relevant to Health Maintenance Results * CBC WITH AUTO DIFFERENTIAL (03/05/2024 2:17 PM COMPLIANCE CONSULTANT) WHITE BLOOD COUNT 6.6 4.5 - 11.0 thou/cu mm 03/05/2024 10:27 PM COMPLIANCE CONSULTANT [facility] RED BLOOD COUNT 4.21 4.00 - 5.20 mil/cu mm 03/05/2024 10:27 PM COMPLIANCE CONSULTANT [facility] HEMOGLOBIN 13.4 12.0 - 16.0 g/dL 03/05/2024 10:27 PM [facility] HEMATOCRIT 39.7 33.0 - 51.0 % 03/05/2024 10:27 PM [facility] MCV 94 80 - 100 fL 03/05/2024 10:27 PM [facility] MCH 31.8 26.0 - 34.0 pg 03/05/2024 10:27 PM [facility] MCHC 33.8 32.0 - 36.0 g/dL 03/05/2024 10:27 PM [facility] RDW 12.6 11.5 - 15.5 % 03/05/2024 10:27 PM [facility] PLATELET COUNT 269 140 - 440 thou/cu mm 03/05/2024 10:27 PM [facility] MPV 9.4 6.5 - 11.0 fL 03/05/2024 10:27 PM [facility] NRBC 0.0 % 03/05/2024 10:27 PM [facility] ABS NRBC 0.0 thou /cu mm 03/05/2024 10:27 PM [facility] % NEUT 51.2 % 03/05/2024 10:27 PM [facility] % LYMPH 38.3 % 03/05/2024 10:27 PM [facility] % MONO 6.9 % 03/05/2024 10:27 PM [facility] % EOS 1.5 % 03/05/2024 10:27 PM [facility] % BASO 1.8 % 03/05/2024 10:27 PM [facility] % IMMATURE GRAN (METAS,MYELOS,CO OS) 0.3 % 03/05/2024 10:27 PM [facility] ABSOLUTE NEUTROPHILS 3.4 1.7 - 7.0 thou/cu mm 03/05/2024 10:27 PM COMPLIANCE CONSULTANT [facility] ABSOLUTE LYMPHOCYTES 2.5 0.9 - 2.9 thou/cu mm 03/05/2024 10:27 PM COMPLIANCE CONSULTANT [facility] ABSOLUTE MONOCYTES 0.5 <0.9 thou/cu mm 03/05/2024 10:27 PM [facility] ABSOLUTE EOSINOPHILS 0.1 <0.5 thou/cu mm 03/05/2024 10:27 PM COMPLIANCE CONSULTANT [facility] ABSOLUTE BASOPHILS 0.1 <0.3 thou/cu mm 03/05/2024 10:27 PM [facility] ABSOLUTE IMMATURE GRANULOCYTES(MET ,MYELOS,PROS) 0.0 <0.3 thou/cu mm 03/05/2024 10:27 PM [facility] Blood BLOOD SPECIMEN / Unknown [facility] / Unknown 03/05/2024 2:17 PM COMPLIANCE CONSULTANT 03/05/2024 2:18 PM COMPLIANCE CONSULTANT Narrative [facility] - 03/05/2024 10:27 PM COMPLIANCE CONSULTANT This procedure was originally ordered at [facility]. Veronica PALACIO HEMATOLOGY Final R esult [facility] [address] [place] [address], * (ABNORMAL) IRON PLUS IRON BINDING CAP (03/05/2024 2:17 PM COMPLIANCE CONSULTANT) IRON 118 37 - 145 ug/dL 03/05/2024 11:14 PM [facility] UIBC (UNSATURATED) 128 112 - 347 ug/dL 03/05/2024 11:14 PM [facility] IRON BINDING CAPACITY 246(L) 250 - 400 ug/dL 03/05/2024 11:14 PM [facility] IRON,% SATURATION 48 14 - 50 % 03/05/2024 11:14 PM [facility] Blood BLOOD SPECIMEN / Unknown [facility] / Unknown 03/05/2024 2:17 PM COMPLIANCE CONSULTANT 03/05/2024 2:18 PM COMPLIANCE CONSULTANT Veronica PALACIO CHEMISTRY Final R esult Performing Organization Address City/[facility]/ZIP Co de Phone Number [facility] [address] [place] [id number], [place] * (ABNORMAL) FERRITIN (03/05/2024 2:17 PM COMPLIANCE CONSULTANT) Pathologist [facility] FERRITIN 227.0(H) 15.0 - 150.0 ng/mL 03/05/2024 11:14 PM COMPLIANCE CONSULTANT [facility] Blood BLOOD SPECIMEN / Unknown [facility] / Unknown 03/05/2024 2:17 PM COMPLIANCE CONSULTANT 03/05/2024 2:18 PM COMPLIANCE CONSULTANT Veronica PALACIO CHEMISTRY Final [facility] Performing Organization Address [facility] Co de Phone Number [facility] [address] [phone], [place] * VITAMIN B12 (03/05/2024 2:17 PM COMPLIANCE CONSULTANT) [facility] VITAMIN B12 1,000 232 - 1,245 pg/mL 03/05/2024 11:14 PM COMPLIANCE CONSULTANT [facility] Blood BLOOD SPECIMEN / Unknown [facility] / Unknown 03/05/2024 2:17 PM COMPLIANCE CONSULTANT 03/05/2024 2:18 PM COMPLIANCE CONSULTANT Narrative [facility] - 03/05/2024 11:14 PM COMPLIANCE CONSULTANT Biotin supplements may cause clinically significant interference for this test assay. If interference is suspected, it is strongly recommended that biotin is discontinued for at least one week prior to retesting. Veronica PALACIO CHEMISTRY Final R esult Performing Organization Address City/[facility] Co de Phone Number [facility] [address] [place] [address], [place] * TSH (02/18/2024 9:51 AM COMPLIANCE CONSULTANT) Pathologist [facility] TSH 1.52 mIU/L [facility] Don Comment: Reference Range > or = 20 Years 0.40-4.50 Ranges First trimester 0.26-2.66 Second trimester 0.55-2.73 Third trimester 0.43-2.91 Blood BLOOD SPECIMEN / Unknown 02/18/2024 9:51 AM COMPLIANCE CONSULTANT 02/18/2024 9:51 AM COMPLIANCE CONSULTANT Sylvain Ardon MD CHEMISTRY Final Re sult [facility] [address] [place] [address], [facility] [address] [place] [address] * T4,FREE (02/18/2024 9:51 AM COMPLIANCE CONSULTANT) Pathologist [facility] T4, FREE 1.2 0.8 - 1.8 ng/dL [facility] [place] Blood BLOOD SPECIMEN / Unknown 02/18/2024 9:51 AM COMPLIANCE CONSULTANT 02/18/2024 9:51 AM COMPLIANCE CONSULTANT Sylvain Ardon MD CHEMISTRY Final Re sult [facility] [address] [place] [phone], [facility] [address] [place] [address] * HPV HIGH RISK (03/18/2021 11:45 AM COMPLIANCE CONSULTANT) Pathologist [facility] TYPE 16 Negative Negative 03/23/2021 5:25 PM COMPLIANCE CONSULTANT [facility] TYPE 18 Negative Negative 03/23/2021 5:25 PM COMPLIANCE CONSULTANT [facility] OTHER HIGH RISK TYPES Negative Negative 03/23/2021 5:25 PM COMPLIANCE CONSULTANT [facility] Other (Cervical) Non-Blood / Unknown 03/18/2021 11:45 AM COMPLIANCE CONSULTANT 03/21/2021 9:51 AM COMPLIANCE CONSULTANT Narrative [facility] - 03/23/2021 5:25 PM COMPLIANCE CONSULTANT HPV types 16, 18, 31, 33, 35, 39, 45, 51, 52, 56, 58, 59, 66 and 68 DNA were undetectable or below the pre-set threshold. Methodology: Vidhya Lindy 4800 HPV Test us Coreen Tran NP MICROBIOLOGY Final Res ult [facility] [address] [place] [address], from Last 3 Months or Most Recently Relevant to Health Maintenance Insurance [employer] [place] [employer] Advance Directives * Full Code (Latest Code Status on File) Date Activated Date Inactivated Comments 10/31/2021 6:08 AM 10/31/2021 2:56 PM Question Answer Comments Code Status Discussion: Reviewed Preferences * Full Code Date Activated Date Inactivated Comments 09/27/2020 3:52 PM 09/29/2020 3:09 PM Question Answer Comments Code Status Discussion: Discussed Care Teams Case Finisher Relationship Specialty [place] [address] [address] [place] [address] PCP - General Nurse Practitioner 01/02/19 Sylvain Ardon MD [address] [facility] [address] [place] [address] Endocrinology 08/23/22
--- OUTSIDE RECORDS SUMMARY | 2024-05-18 14:53 | XMS_ITS | Continuity of Care Document ---
Author Organization [facility] Address [address] [address] [place] [address] Care Team Providers Care Cost Manager Name Role Phone [place], [place] Unavailable Unav ailable Procedures Procedure Date Ugi En Colono Advance Directives Directive Yes / No Effective Date File Name No Information Encounters Encounter Description Practice Location Reason(s) For Visit Diagnoses Date Provider Providers Copied on Encounter [facility], [address] [address], [place], [place], [id number], [facility] No Information [facility]. [address] [address], [place], [place], [id number], . tel:[phone] Referring Provider: Bea Santos MD, [address] [address], [place], [address] . tel:[phone] Family History Family Member Type Diagnosis Age At Onset No Information Payers Payer name Insurance type Covered democrat ID Authoriza tisharon(s) [employer] [facility] [id number] Social History Type Description Quantity Date Captured [...]
--- OUTSIDE RECORDS SUMMARY | 2024-05-18 14:53 | XMS_ITS | Clinical Summary ---
Author Organization [facility] Address [address] [place] [address] Care Team Providers Care Chick Room Supervisor Name Role Phone Unavailable Primary Care Provider [...]
--- OUTSIDE RECORDS SUMMARY | 2024-05-18 14:53 | XMS_ITS | Continuity of Care Document ---
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 [address], [id number], [place]. tel:[phone] Offic/outpt E&m Estab Mod-hi 2 [facility], [address] [address], [place], [id number], [place] tel:[phone] [facility] GI Symptoms or Concerns (chief complaint) Irritable bowel syndrome with constipationC hronic idiopathic constipationG astroparesisP ancreatic insufficiency 4 Bj Phan. 3001 [facility] [address], [place], [id number], [place]. tel:[phone] Referring Provider: Coreen Christy, [address] [place], [address]. tel:[phone] [facility], [address] [address], [place], [id number], [place] tel:[phone] [facility] GI Symptoms or Concerns (chief complaint) Gastroparesis Dietary counseling and surveillance 3 Quang Trevino. [address], [id number], [place]. tel:[phone] Referring Provider: Referral Self, USE FOR SELF REFERRALS. [facility], [address] [address], [place], [id number], [place] tel:[phone] [facility] Gastroparesis 3 Tom Figueredo. 3001 [facility], [address], [id number], [place]. tel:[phone] [facility], [address] [address], [place], [id number], [place] tel:[phone] [facility] Gastroparesis 3 Irene Obrien. [address] [place] [address], [id number], [place]. tel:[phone] Referring Provider: Referral Self, USE FOR SELF REFERRALS. [facility], [address] [address], [place], [id number], [place] tel:[phone] Infusion Crystal Gastroparesis 3 oTm Figueredo. [address], [id number], [place]. tel:[phone] [facility], [address] [address], [place], [id number], [place] tel:[phone] [facility] Gastro-esopha geal reflux disease without esophagitisGa stroparesis 3 Tom Figueredo. [address] [place] [address], [id number], [place]. tel:[phone] [facility], [address] [address], [place], [id number], [place] tel:[phone] [facility] Gastroparesis 3 Tom Figueredo. 3001 [facility], [address], [id number], [place]. tel:[phone] [facility], [address] [address], [place], [id number], [place] tel:[phone] [facility] Gastro-esopha geal reflux disease without esophagitisIr on deficiency anemia, unspecified 3 Yazan Landrum. [address] [place] [address], [id number], [place]. tel:[phone] Referring Provider: Referral Self, USE FOR SELF REFERRALS. [facility], [address] [address], [place], [id number], [place] tel:[phone] [facility] Gastro-esopha geal reflux disease without esophagitis 3 Tom Figuereod. [address] [place] [address], [id number], [place]. tel:[phone] [facility], [address] [address], [place], [id number], [place] tel:[phone] [facility] Gastro-esopha geal reflux disease without esophagitis 3 Jose Antonio Roque. [address] [place] [address], [id number], [place]. tel:[phone] Referring Provider: Referral Self, USE FOR SELF REFERRALS. [facility], [address] [address], [place], [id number], [place] tel:[phone] [facility] Gastro-esopha geal reflux disease without esophagitis 3 Tom Figueredo. [address] [place] [address], [id number], [place]. tel:[phone] [facility], [address] [address], [place], [id number], [place] tel:[phone] [facility] Gastro-esopha geal reflux disease without esophagitis 3 Jett German. [address] [place] [address], [id number], [place]. tel:[phone] Referring Provider: Referral Self, USE FOR SELF REFERRALS. [facility], [address] [address], [place], [id number], [place] tel:[phone] [facility] Iron deficiency anemia, unspecified 3 Tom Figueredo. 3001 [facility], [address], [id number], [place]. tel:[phone] Referring Provider: Referral Self, USE FOR SELF REFERRALS. [facility], [address] [address], [place], [id number], [place] tel:[phone] [facility] Gastroesophag eal reflux disease without esophagitis 3 Tom Figueredo. [address] [place] [address], [address], [id number], [place]. tel:[phone] [facility], [address] [address], [place], [id number], [place] tel:[phone] [facility] GI Symptoms or Concerns (chief complaint) Gastroparesis Dietary counseling and surveillance 3 Quang Trevino. 3001 [facility], [facility] [address], [place], [id number], [place]. tel:[phone] Referring Provider: Referral Self, USE FOR SELF REFERRALS. Established Level 5 [facility], [address] [address], [place], [id number], [place] tel:[phone] [facility] GI Symptoms or Concerns (chief complaint) Previous History Review (chief complaint) Gastroesophag eal reflux disease without esophagitisGa stroparesisPa ncreatic insufficiency Vomiting, intractabilit y of vomiting not specified, presence of nausea not specified, unspecified vomiting typeChronic idiopathic constipationI bradley deficiency anemia, unspecified iron deficiency anemia typeVitamin B12 deficiency 3 Tom Figueredo. [address] [place] [address], [facility] [address], [place], [id number], [place]. tel:[phone] Referring Provider: Referral Self, USE FOR SELF REFERRALS. Established Level 5 [facility], [address] [address], [place], [id number], [place] tel:[phone] [facility] GI Symptoms or Concerns (chief complaint) Gastroparesis Pancreatic insufficiency B12 deficiencyAbn ormal bowel habits Jun- 3 Propp ROSENDO Vidal. [facility]1 [facility], [address], [id number], [place]. tel:[phone] Referring Provider: Coreen Tran CNP Jaelyn, [address] [facility] [place], [address]. tel:[phone] [facility], [address] [address], [place], [place], [id number], [place] tel:[phone] [facility] GI Symptoms or Concerns (chief complaint) Other fecal abnormalities Iron deficiency anemia, unspecifiedIr on deficiency anemia, unspecifiedCh shane in bowel habitsPancrea tic insufficiency Iron deficiency anemia, unspecifiedCh shane in bowel habit August-0 2 Tom Figueredo. [address] [place] [address], [id number], [place]. tel:[phone] Referring Provider: Referral Self, USE FOR SELF REFERRALS. [facility], [address] [address], [place], [place], [id number], [place] tel:[phone] [facility] Change in consistency of stoolPancreat ic insufficiency Weight loss Jul-0 2 Tom Figueredo. [address], [id number], [place]. tel:[phone] Established Level 4 [facility], [address] [address], [place], [place], [id number], [place] tel:[phone] [facility] GI Symptoms or Concerns (chief complaint) Additional Narrative (chief complaint) Gastroparesis Gastroesophag eal reflux disease without esophagitisCh ronic idiopathic constipationV itamin B12 deficiencyIDA (iron deficiency anaemia)Vitam in D deficiency Fe- 2 Tom Figueredo. [address], [id number], [place]. tel:[phone] Referring Provider: Referral Self, USE FOR SELF REFERRALS. Established Level 4 [facility], [address] [address], [place], [id number], [place] tel:[phone] [facility] GI Symptoms or Concerns (chief complaint) Additional Narrative (chief complaint) Iron deficiency anemia, unspecifiedGa stroparesisAl opeciaGastroe sophageal reflux disease without esophagitis 1 Tom Figueredo. [address] [place] [address], [address], [id number], [place]. tel:[phone] Referring Provider: Referral Self, USE FOR SELF REFERRALS. [facility], [address] [address], [place], [id number], [place] tel:[phone] [facility] Gastroparesis 1 Tom Figueredo. [address] [place] [address], [id number], [place]. tel:[phone] Established Level 3 [facility], [address] [address], [place], [id number], [place] tel:[phone] [facility] GI Symptoms or Concerns (chief complaint) Additional Narrative (chief complaint) Gastroparesis Weight lossGastroeso phageal reflux disease without esophagitis 1 Tom Figueredo. [address] [place] [address], [id number], [place]. tel:[phone] Referring Provider: Referral Self, USE FOR SELF REFERRALS. Established Level 5 [facility], [address] [address], [place], [id number], [place] tel:[phone] [facility] GI Symptoms or Concerns (chief complaint) Additional Narrative (chief complaint) Weight lossGastropar esisVomiting, intractabilit y of vomiting not specified, presence of nausea not specified, unspecified vomiting typeGastroeso phageal reflux disease without esophagitis 1 Tom Figueredo. [address] [place] [address], [id number], [place]. tel:[phone] Referring Provider: Referral Self, USE FOR SELF REFERRALS. Established Level 5 [facility], [address] [address], [place], [id number], [place] tel:[phone] [facility] GI Symptoms or Concerns (chief complaint) Additional Narrative (chief complaint) Gastroparesis Weight lossVomiting, intractabilit y of vomiting not specified, presence of nausea not specified, unspecified vomiting type 1 Tom Figueredo. [address] [place] [address], [address], [id number], [place]. tel:[phone] Referring Provider: Referral Self, USE FOR SELF REFERRALS. [facility], [address] [address], [place], [id number], [place] tel:[phone] [facility] GI Symptoms or Concerns (chief complaint) Chronic idiopathic constipationG astroparesisW eight loss 1 No Information Referring Provider: Referral Self, USE FOR SELF REFERRALS. Established Level 4 [facility], [address] [address], [place], [id number], [place] tel:[phone] [facility] GI Symptoms or Concerns (chief complaint) Additional Narrative (chief complaint) Gastroparesis 1 Tom Figueredo. [address] [place] [address], [id number], [place]. tel:[phone] Referring Provider: Referral Self, USE FOR SELF REFERRALS. [facility], [address] [address], [place], [id number], [place] tel:[phone] [facility] Volume depletion 1 Tom Figueredo. [address] [place] [address], [id number], [place]. tel:[phone] Established Level 5 [facility], [address] [address], [place], [id number], [place] tel:[phone] [facility] GI Symptoms or Concerns (chief complaint) Additional Narrative (chief complaint) Gastroparesis Weight lossVolume depletion 1 Tom Figueredo. [address] [place] [address], [id number], . tel:[phone] Referring Provider: Referral Self, USE FOR SELF REFERRALS. [facility], [address] [address], [place], [id number], [place] tel:[phone] [facility] GI Symptoms or Concerns (chief complaint) Chronic idiopathic constipationG astroparesisW eight loss Jul-2 1 No Information Referring Provider: Referral Self, USE FOR SELF REFERRALS. [facility], [address] [address], [place], [id number], [place] tel:[phone] [facility] Weight lossGastropar esis Jul-0 1 Tom Figueredo. [address] [place] [address], [id number], . tel:[phone] Established Level 3 [facility], [address] [address], [place], [id number], [place] tel:[phone] [facility] GI Symptoms or Concerns (chief complaint) Additional Narrative (chief complaint) Gastroesophag eal reflux disease without esophagitisGa stroparesisCh ronic idiopathic constipation Jun-0 1 Tom Figueredo. [address] [place] [address], [id number], [place]. tel:[phone] Referring Provider: Referral Self, USE FOR SELF REFERRALS. Established Level 4 [facility], [address] [address], [place], [id number], [place] tel:[phone] [facility] GI Symptoms or Concerns (chief complaint) Additional Narrative (chief complaint) Iron deficiency anemia, unspecifiedRU Q painVomiting, intractabilit y of vomiting not specified, presence of nausea not specified, unspecified vomiting typeWeight lossConstipat ion, unspecified constipation typeGastropar esis 1 Tom Figueredo. [address] [place] [address], [address], [id number], [place]. tel:[phone] Referring Provider: Coreen Christy, [address] [place], [address]. tel:[phone] Offic/outpt E&m New Mod-hi [facility], [address] [address], [place], [place], [id number], tel:[phone] [facility] GI Symptoms or Concerns (chief complaint) Iron deficiency anemia, unspecified iron deficiency anemia typeVomiting, intractabilit y of vomiting not specified, presence of nausea not specified, unspecified vomiting typeWeight lossConstipat ion, unspecified constipation typeRUQ pain 0 Tom Figueredo. [address] [place] [address], [id number], [place]. tel:[phone] [facility], [address] [address], [place], [place], [id number], tel:[phone] [facility] Iron deficiency anemia, unspecified 0 Tom Figueredo. [address] [place] [address], [id number], [place]. tel:[phone] Referring Provider: Coreen Trevinobeth, [address], [place], [address]. tel:[phone] Family History Family Member Type Diagnosis Age At Onset Mother Problem (finding) Alive and well Mother Problem (finding) gallbladder disease Father Problem (finding) Alive and well Father Problem (finding) Colon polyps Payers Payer name Insurance type Covered constitution party ID Authoriza tisharon(s) Blue Plus Of [facility] [id number] Social History Type Description Quantity Date Captured [...] 10/26/2022 ordered Referral Ordered: follow-up visit with [facility] in 4 Months or by 02/04/2023 Appointment date/timeframe: 02/05/2023 ordered Referral Ordered: referred to [facility] [address] urgent - formula change needed within 4 Weeks Appointment date/timeframe: 28 Days ordered Referral Ordered: CBC W/diff, Whole Blood Appointment date/timeframe: First Available ordered Referral Ordered: MRI Pancreas WITH Contrast Appointment date/timeframe: 07/20/2022 ordered Referral Ordered: MRI Pancreas WITHOUT Contrast Appointment date/timeframe: 07/20/2022 ordered Referral Ordered: Vitamin B12 Serum Appointment date/timeframe: 08/29/2021 ordered Referral Ordered: Vitamin D, 25-Hydroxy Appointment date/timeframe: 08/29/2021 ordered Referral Ordered: Vitamin A And E Appointment date/timeframe: 08/29/2021 ordered Referral Ordered: Hemoglobin [...] homebound patient. 99 doses ordered Referral Ordered: Phosphorus Appointment date/timeframe: 09/02/2020 ordered Referral Ordered: Magnesium Appointment date/timeframe: 09/02/2020 ordered Referral Ordered: IVF: 1 L NS twice a week ordered Referral Ordered: CMP Appointment date/timeframe: 09/02/2020 ordered Referral Ordered: Place midline - single lumen 5 cm length. ordered Referral Ordered: Starting 08/24 for dose [...] been eating by mouth mostly, and using [employer] 1.4 standard supplement 1 box 3 times [...] Alopecia areata SOCIAL HISTORYShe is originally from [place]. Her works for the [employer]. 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 [...] for gastroparesis. She takes 3 cartons of [employer] Standard 1.[address] [facility] (8p-8a). Tube feeding provides 1365 calories, 153 [...] her diet since our last visit including Nigerian yogurt, string cheese, turkey deli meat, and some ground turkey and chicken breast. Estimated Energy and Nutrient Cydlq0717-6171 calories/zal43-40 g protein/dayNutrition DiagnosisAltered nutrition-related lab values (glucose) [...] for gastroparesis. She takes 3 cartons of [employer] Standard 1.[address] [facility] (8p-8a). Tube feeding provides 1365 calories, 153 [...] or Shadi sauce. Estimated Energy and Nutrient Dopqm1543-7929 calories/cdy03-24 g protein/dayNutrition DiagnosisAltered nutrition-related lab values (glucose) related to possible inadequate protein/fat intake and/or eating schedule as evidenced by patient self-report of reactive hypoglycemic episodes.Nutrition Discussion and EducationThe patient was seen in follow-up. She was previously seen by a [facility] dietitian in 2020. Her primary concern [...] LOW B12 140 (starting injxns) -> 440 08/2851ViJ7U, IgG, celiac, Laine A/E normal 2021 LOW [...] Alopecia areata SOCIAL HISTORYMachelle is originally from [place]. Her works for the [employer]. 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 [...] Alopecia areata SOCIAL HISTORYShe is originally from [place]. Her works for the [employer]. 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 [...] with Vangie 10/22/20SOCIAL HISTORYMachelle is originally from [place]. Her works for the [employer]. 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 [...] with Vangie 10/22/20SOCIAL HISTORYShnilton is originally from [place]. Her works for the [employer]. 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 [...] with Vangie 10/22/20SOCIAL HISTORYMachelle is originally from [place]. Her works for the [employer]. 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 [...] normal CBC and iron. - EGD in [place], which showed only a small hiatal hernia. [...] 6 mg daily)SOCIAL HISTORYMachelle is originally from [place]. Her works for the [employer]. 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 [...] oral intake. She was also referred to hot saw helper to try and support her dietary intake [...] abdominal upset or vomiting. She is drinking Open[employer] shakes 3 times daily and they have ~150 calories. She has tried other shakes, including [employer] but she didn't like or tolerate them [...] 6 mg daily)SOCIAL Yeh is originally from [place]. Her works for the [employer]. 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 [...] normal CBC and iron. - EGD in [place], which showed only a small hiatal hernia. [...] 6 mg daily)SOCIAL Yeh is originally from [place]. Her works for the [employer]. 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 [...] normal CBC and iron. - EGD in [place], which showed only a small hiatal hernia. [...] Zofran p.r.n. nausea.SOCIAL HISTORYMachelle is originally from [place]. Her works for the [employer]. 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 [...] She has had 4 childbirths.- EGD in [place], which showed only a small hiatal hernia. [...] Zofran p.r.n. nausea.SOCIAL Ruba is originally from [place]. Her works for the [employer]. 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 [...] or Concerns Vangie is a 35-year-old female with prio r [...] reviewed in [facility]. Prior medical records from [place] are not available. Approximately 2 years ago, she developed progressive acute illness. Eventually, she was found to be hyperthyroid. Through a long process, she eventually underwent thyroid removal at [place]. She has been struggling with her thyroid [...] patient portal or contact my coordinator at [phone] ext [phone]. Related to Gastroparesis 1. Continue tube fee [...] salvador crackers- 1/2 cup plain reduced fat Nigerian yogurt with 1/2 banana- 1-2oz shredded chicken breast or lean ground turkey with pasta or rice- 1/2 cup soft fruit (banana, melon, canned fruit) with a string cheese- [employer] protein shake3. To reach me with questions/concerns, email via the patient portal or contact my coordinator at [phone] ext [phone]. Related to Gastroparesis It was nice to [...] up in 3 months Related to Gastroparesis [place]- please provid e patient with 500mL pump [...]
--- NOTE | 2024-05-18 15:10 | ED_ITS ---
HPI - General Adult General Chief complaint: Laceration/Wound Stated complaint: Left thumb injury might need stitches Time Seen by Provider: 05/18/24 14:34 History of Present Illness HPI narrative: Patient is a 39-year-old woman who cut the posterior aspect of her left thumb while making a bow for bone marrow today. She suffered 2 parallel lacerations both 3 cm in length in elliptical fashion on the posterior aspect of the left thumb. Hemostasis was achieved prior to coming in. She is up-to-date on her tetanus shot. She has full neuro muscular function of left hand and otherwise has no complaints. Related Data Home Medications ?Medication ?Instructions ?Recorded ?Confirmed buspirone 10/22/21 clonazepam 10/22/21 escitalopram oxalate 10/22/21 gabapentin 10/22/21 levothyroxine 10/22/21 [id number] PO 10/22/21 omeprazole 10/22/21 vitamin B complex PO 10/22/21 Previous Rx's ?Medication ?Instructions ?Recorded doxycycline monohydrate 100 mg 100 mg PO BID 7 days #14 caps 02/09/22 capsule metronidazole 500 mg tablet 500 mg PO TID 7 days #21 tabs 02/09/22 Allergies Allergy/AdvReac Type Severity Reaction Status Date / Time amoxicillin Allergy Mild Nausea Verified 05/18/24 14:30 topical iodine Allergy Mild Rash Uncoded 10/22/21 17:12 Review of Systems Status of ROS: Reports: 10 or more systems reviewed and unremarkable except as noted in History and below [facility] Social History Smoking Status: Never smoker How often do you have a drink containing alcohol: never AUDIT-C Alcohol total score: 0 Non-prescribed substance use: denies use Exam Narrative: Exam Narrative: EXAM GENERAL: Patient appears comfortable and well. EYES: No scleral icterus. LYMPH: No supraclavicular or cervical lymphadenopathy. SKIN: Laceration as above. EXT: No dependent lower extremity pedal edema. HEART: Regular rate and rhythm with no murmurs, rubs, or gallops. LUNGS: Clear to auscultation bilaterally with no crackles or wheezes. ABD: Soft, non tender, non distended. PSYCH: Good eye contact, speech is not pressured. Const: Vital Signs, click to edit/add: Vital Signs - 24 hr 05/18/24 14:28 Temperature 97.3 F L Pulse Rate [Left P ulse Oximeter] 86 Respiratory Rate 16 Blood Pressure [Ri ght Upper Arm] 131/88 Pulse Oximetry 99 Oxygen Delivery Me thod Room Air Course Course ED Course: After explaining the risks and benefits of the procedure I did aggressively irrigate the wound. I then provided digital block of the 1st digit left hand. This was achieved with 1% lidocaine without epinephrine. I then closed the defect with 7 running 4-0 Ethilon sutures. She was treated with bacitracin and a dressing. We did review wound care dressing changes. Will follow up with suture removal in approximately the 9-10 days. Vital Signs Vital signs: Initial Vital Signs Temperature 97.3 F L 05/18/24 14:28 Temperature Source Temporal Artery Scan 05/18/24 14:28 Pulse Rate 86 05/18/24 14:28 Respiratory Rate 16 05/18/24 14:28 Blood Pressure 131/88 05/18/24 14:28 Blood Pressure Mean 102 05/18/24 14:28 Blood Pressure Position Sitting 05/18/24 14:28 Pulse Oximetry 99 05/18/24 14:28 Oxygen Delivery Method Room Air 05/18/24 14:28 Vital Signs Temperature 97.3 F L 05/18/24 14:28 Pulse Rate 86 05/18/24 14:28 Respiratory Rate 16 05/18/24 14:28 Blood Pressure 131/88 05/18/24 14:28 Pulse Oximetry 99 05/18/24 14:28 Oxygen Delivery Method Room Air 05/18/24 14:28 Temperature 97.3 F L 05/18/24 14:28 Pulse Rate 86 05/18/24 14:28 Respiratory Rate 16 05/18/24 14:28 Blood Pressure 131/88 05/18/24 14:28 Pulse Oximetry 99 05/18/24 14:28 Oxygen Delivery Method Room Air 05/18/24 14:28 Medical Decision Making MDM Narrative Medical decision making narrative: As above Discharge Plan Discharge Clinical Impression: Laceration Patient Disposition: Home, Self-Care Condition: Stable Instructions: Laceration (ED) Additional Instructions: Bacitracin Daily dressing changes Suture removal in proximally 9-10 days. Activity Level: No Restrictions Discharge Diet: Regular Prescriptions: No Action gabapentin escitalopram oxalate [Lexapro] levothyroxine [Tirosint] [id number] [Creon] PO clonazepam omeprazole buspirone vitamin B complex [B Complex-Vitamin B12] PO doxycycline monohydrate 100 mg capsule 100 mg PO BID 7 Days Qty: 14 0RF metronidazole 500 mg tablet 500 mg PO TID 7 Days Qty: 21 0RF Follow Up/Referrals: Coreen Tran, WILIAM, [employer] [Primary Care Provider] - Stand Alone [facility]: [facility] Info Instructions
== END 2024-05-18 15:25 | disposition home or self-care (01) ==
PROVIDERS: Emergency Provider Internal Medicine; PCP Nurse Practitioner Family
DX: S61.012A Laceration without foreign body of left thumb without damage to nail, initial encounter (principal); W26.9XXA Contact with unspecified sharp object(s), initial encounter
CPT/HCPCS: 12002; 99283